=== PATIENT | male | born 1955 | race Caucasian/White ===

== ENCOUNTER 2017-03-24 16:48 | Inpatient (IN) ==
[2017-03-24] MEDS ORDERED: HYDROcodone/CHLORPHENIRAMINE ER 5 ML UDCUP PO ONE ×2 (17:08→17:15)
[2017-03-24] MEDS ORDERED: ALBUTEROL/IPRATROPIUM 3 ML NEB RESP TX STA (17:11)
[2017-03-24 17:56] LABS: Alanine Aminotransferase 17 U/L (16-61); Albumin 2.6 G/DL (3.4-5.0); Alkaline Phosphatase 113 U/L (45-117); Aspartate Amino Transferase 15 U/L (0-37); Bilirubin,Total < 0.39 MG/DL (0.2-1.0); Blood Urea Nitrogen 30 MG/DL (7-18); Calcium 8.8 MG/DL (8.5-10.1); Glucose 226 MG/DL (74-106); Osmolality,Calculated 291.4 MOS/KG (273-304); Potassium 4.1 MMOL/L (3.5-5.1); Sodium 140 MMOL/L (136-145); Total Protein 6.6 G/DL (6.4-8.3); Troponin I Only 0.023 NG/ML (0.00-0.045)
[2017-03-24 18:08] LABS: Basophils % 0.5 % (0.0-0.8); Eosinophils # 0.2 10*3/uL (0.0-0.87); Eosinophils % 2.6 % (0.00-10.9); Hemoglobin 13.1 GM/DL (14.0-18.0); Immature Granulocytes % 0.6 %; Immature Granulocytes Absolute 0.05 #; Lymphocytes # 1.1 10*3/uL (1.4-4.0); Lymphocytes % 12.6 % (21.2-54.2); Mean Corpuscular HGB Conc 33.6 GM/DL (32-36); Mean Corpuscular Hemoglobin 30 PG (27-34); Mean Corpuscular Volume 89.9 FL (87-102); Mean Platelet Volume 10.1 FL (9.6-12.0); Monocytes # 0.6 10*3/uL (0.11-0.8); Monocytes % 6.5 % (1.7-12.7); Neutrophils # 6.5 10*3/uL (1.4-7.4); Neutrophils % 77.2 % (38.7-73.9); Platelet Count 169 T/CUMM (130-400); Red Blood Count 4.34 MC/CUMM (3.8-5.5); Red Cell Distribution Width 13.1 % (9.3-17.3); White Blood Count 8.4 T/CUMM (4-12)
[2017-03-24 18:19] LABS: INR 1.1; PT Patient Result 11.5 SECS; Partial Thromboplastin Time 28.8 SECS (0-40)
[2017-03-24] MEDS ORDERED: INFLUENZA VIRUS VACCINE 0.5 ML SYRINGE IM ONE (20:28)
[2017-03-24] MEDS ORDERED: PNEUMOCOCCAL VACCINE (23 VALENT) 0.5 ML VIAL IM ONE (20:28)
[2017-03-24] MEDS ORDERED: NICOTINE 21 MG/24 HR PATCH TRANSDERM PRN (20:29)
[2017-03-24] MEDS ORDERED: DEXTROSE 50% 25 GM/50 ML VIAL IV PRN (20:29)
[2017-03-24] MEDS ORDERED: ONDANSETRON 4 MG/2 ML VIAL IV PRN (20:29)
[2017-03-24] MEDS ORDERED: ACETAMINOPHEN 325 MG TABLET PO PRN (20:29)
[2017-03-24] MEDS ORDERED: GLUCAGON 1 MG VIAL IM PRN (20:29)
[2017-03-24] MEDS: INSULIN LISPRO 100 UNIT/ML SUBCUT SCH (20:53)
[2017-03-24] MEDS: methylPREDNISolone SOD SUC 40 MG/1 ML VIAL IV SCH (20:54)
[2017-03-24] MEDS: METOPROLOL TARTRATE 50 MG TABLET PO SCH (20:59)
[2017-03-24] MEDS: ALBUTEROL/IPRATROPIUM 3 ML NEB RESP TX SCH (22:41)
[2017-03-25] MEDS: ALBUTEROL/IPRATROPIUM 3 ML NEB RESP TX SCH ×4 (03:30→19:49)
[2017-03-25] MEDS: methylPREDNISolone SOD SUC 40 MG/1 ML VIAL IV SCH ×4 (04:28→21:40)
[2017-03-25 05:28] LABS: Basophils % 0.1 % (0.0-0.8); Eosinophils % 0.3 % (0.00-10.9); Hematocrit 39.6 VOL% (42.0-52.0); Hemoglobin 12.8 GM/DL (14.0-18.0); Immature Granulocytes % 0.6 %; Immature Granulocytes Absolute 0.05 #; Lymphocytes # 0.4 10*3/uL (1.4-4.0); Lymphocytes % 5.7 % (21.2-54.2); Mean Corpuscular HGB Conc 32.3 GM/DL (32-36); Mean Corpuscular Hemoglobin 30 PG (27-34); Mean Corpuscular Volume 91.2 FL (87-102); Mean Platelet Volume 10.4 FL (9.6-12.0); Monocytes # 0.1 10*3/uL (0.11-0.8); Monocytes % 0.8 % (1.7-12.7); Neutrophils # 7.1 10*3/uL (1.4-7.4); Neutrophils % 92.5 % (38.7-73.9); Platelet Count 169 T/CUMM (130-400); Red Blood Count 4.34 MC/CUMM (3.8-5.5); White Blood Count 7.7 T/CUMM (4-12)
[2017-03-25 05:53] LABS: Free T4 (Free Thyroxine) 1.02 NG/DL (0.76-1.46)
[2017-03-25 05:59] LABS: Calcium 8.5 MG/DL (8.5-10.1); Osmolality,Calculated 297.8 MOS/KG (273-304); Risk Ratio 4.6; Thyroid Stimulating Hormone 1.38 uIU/ml (0.358-3.74); VLDL CHOLESTEROL 14.4 MG/DL
[2017-03-25 06:06] LABS: Eosinophils 1 % (0-10); Lymphocytes 3 % (20-55); Myelocytes 2 %; Platelet Estimate Adequate; Segmented Neutrophils 94 % (50-85); Total Cells Counted 100
[2017-03-25] MEDS: INSULIN LISPRO 100 UNIT/ML SUBCUT SCH ×4 (08:54→21:40)
[2017-03-25] MEDS: ASPIRIN EC 81 MG TABLET PO SCH (08:55)
[2017-03-25] MEDS: METOPROLOL TARTRATE 50 MG TABLET PO SCH (08:55)
[2017-03-25] MEDS: CLOPIDOGREL 75 MG TABLET PO SCH (08:55)
[2017-03-25] MEDS: PANTOPRAZOLE 40 MG TABLET PO SCH (08:55)
[2017-03-25 11:15] LABS: Apearance,Urine Slightly Hazy (Clear); Bacteria,Urine Many /HPF (Few); Bilirubin,Urine Negative (Negative); Blood, Urine Moderate mg/dL (Negative); Glucose,Urine (UA) >=500 mg/dL (Negative); Ketones,Urine Negative (Negative); Nitrite,Urine Negative (Negative); Protein,Urine >=500 MG/DL; RBC,Urine 46 /HPF (0-4); Squamous Epithelial Cell,Urine Occasional /HPF (0-10); Urine Color Yellow (Yellow); Urine Specific Gravity 1.012 (1.001-1.035); Urine Urobilinogen < 2.0 EU/DL (0.2-1.0); WBC,Urine 3 /HPF (0-6)
[2017-03-25 12:59] LABS: Barbiturates Screen,Urine Negative (Negative); Benzodiazepines Screen,Urine Negative (Negative); Cannabinoid Screen,Urine Negative (Negative); Opiate Screen,Urine Positive (Negative); Phencyclidine Screen,Urine Negative (Negative)
[2017-03-25] MEDS ORDERED: LISINOPRIL 5 MG TABLET PO SCH (15:00)
[2017-03-25] MEDS: ENOXAPARIN 40 MG/0.4 ML SYRINGE SUBCUT SCH (18:30)
[2017-03-25] MEDS: FUROSEMIDE 40 MG/4 ML VIAL IV SCH (18:30)
[2017-03-25] MEDS: CARVEDILOL 6.25 MG TABLET PO SCH (21:39)
[2017-03-25] MEDS: LISINOPRIL 5 MG TABLET PO SCH (21:40)
[2017-03-25] MEDS: ATORVASTATIN 10 MG TABLET PO SCH (21:40)
[2017-03-26] MEDS: ALBUTEROL/IPRATROPIUM 3 ML NEB RESP TX SCH ×4 (00:46→19:17)
[2017-03-26] MEDS: methylPREDNISolone SOD SUC 40 MG/1 ML VIAL IV SCH ×4 (02:59→20:49)
[2017-03-26 08:02] LABS: Basophils % 0.1 % (0.0-0.8); Hematocrit 37.5 VOL% (42.0-52.0); Hemoglobin 12.6 GM/DL (14.0-18.0); Immature Granulocytes % 0.9 %; Immature Granulocytes Absolute 0.12 #; Lymphocytes # 0.5 10*3/uL (1.4-4.0); Lymphocytes % 3.9 % (21.2-54.2); Mean Corpuscular HGB Conc 33.6 GM/DL (32-36); Mean Corpuscular Hemoglobin 30 PG (27-34); Mean Corpuscular Volume 89.9 FL (87-102); Monocytes # 0.2 10*3/uL (0.11-0.8); Monocytes % 1.7 % (1.7-12.7); Neutrophils # 12.2 10*3/uL (1.4-7.4); Neutrophils % 93.4 % (38.7-73.9); Platelet Count 177 T/CUMM (130-400); Red Blood Count 4.17 MC/CUMM (3.8-5.5); Red Cell Distribution Width 12.8 % (9.3-17.3); White Blood Count 13.1 T/CUMM (4-12)
[2017-03-26 08:32] LABS: Band Neutrophils 1 % (0-10); Calcium 8.3 MG/DL (8.5-10.1); Lymphocytes 5 % (20-55); Potassium 4.3 MMOL/L (3.5-5.1); Segmented Neutrophils 92 % (50-85); Total Cells Counted 100
[2017-03-26 08:33] LABS: Hypochromasia 1+; Platelet Estimate Adequate
[2017-03-26] MEDS: CLOPIDOGREL 75 MG TABLET PO SCH (08:50)
[2017-03-26] MEDS: ASPIRIN EC 81 MG TABLET PO SCH (08:50)
[2017-03-26] MEDS: CARVEDILOL 6.25 MG TABLET PO SCH ×2 (08:50→20:48)
[2017-03-26] MEDS: FUROSEMIDE 40 MG/4 ML VIAL IV SCH ×2 (08:50→17:04)
[2017-03-26] MEDS: PANTOPRAZOLE 40 MG TABLET PO SCH (08:50)
[2017-03-26] MEDS: LISINOPRIL 5 MG TABLET PO SCH ×2 (08:50→20:48)
[2017-03-26] MEDS: INSULIN LISPRO 100 UNIT/ML SUBCUT SCH ×4 (08:50→20:48)
[2017-03-26] MEDS: ENOXAPARIN 40 MG/0.4 ML SYRINGE SUBCUT SCH (17:05)
[2017-03-26] MEDS: glipiZIDE 10 MG TABLET PO SCH (17:05)
[2017-03-26] MEDS: ATORVASTATIN 10 MG TABLET PO SCH (20:47)
[2017-03-26] MEDS: INSULIN GLARGINE 100 UNIT/ML SUBCUT SCH (20:48)
[2017-03-27] MEDS: ALBUTEROL/IPRATROPIUM 3 ML NEB RESP TX SCH ×4 (00:54→20:07)
[2017-03-27] MEDS: methylPREDNISolone SOD SUC 40 MG/1 ML VIAL IV SCH ×3 (02:17→16:29)
[2017-03-27 06:03] LABS: Calcium 8.9 MG/DL (8.5-10.1); Potassium 4.5 MMOL/L (3.5-5.1)
[2017-03-27] MEDS: FUROSEMIDE 40 MG/4 ML VIAL IV SCH ×2 (08:45→17:14)
[2017-03-27] MEDS: INSULIN GLARGINE 100 UNIT/ML SUBCUT SCH ×2 (08:45→22:22)
[2017-03-27] MEDS: CLOPIDOGREL 75 MG TABLET PO SCH (08:45)
[2017-03-27] MEDS: PANTOPRAZOLE 40 MG TABLET PO SCH (08:45)
[2017-03-27] MEDS: ASPIRIN EC 81 MG TABLET PO SCH (08:45)
[2017-03-27] MEDS: glipiZIDE 10 MG TABLET PO SCH ×2 (08:45→16:51)
[2017-03-27] MEDS: LISINOPRIL 5 MG TABLET PO SCH ×2 (08:45→22:21)
[2017-03-27] MEDS: CARVEDILOL 6.25 MG TABLET PO SCH ×2 (08:45→22:21)
[2017-03-27] MEDS: INSULIN LISPRO 100 UNIT/ML SUBCUT SCH ×4 (08:46→22:17)
[2017-03-27] MEDS: ENOXAPARIN 40 MG/0.4 ML SYRINGE SUBCUT SCH (16:51)
[2017-03-27] MEDS: FUROSEMIDE 40 MG TABLET PO SCH (17:44)
[2017-03-27] MEDS: predniSONE 20 MG TABLET PO SCH (22:20)
[2017-03-27] MEDS: ATORVASTATIN 10 MG TABLET PO SCH (22:21)
[2017-03-28] MEDS: ALBUTEROL/IPRATROPIUM 3 ML NEB RESP TX SCH ×4 (00:13→19:37)
[2017-03-28] MEDS: ASPIRIN EC 81 MG TABLET PO SCH (08:48)
[2017-03-28] MEDS: INSULIN GLARGINE 100 UNIT/ML SUBCUT SCH (08:48)
[2017-03-28] MEDS: predniSONE 20 MG TABLET PO SCH (08:48)
[2017-03-28] MEDS: CARVEDILOL 6.25 MG TABLET PO SCH (08:48)
[2017-03-28] MEDS: CLOPIDOGREL 75 MG TABLET PO SCH (08:48)
[2017-03-28] MEDS: FUROSEMIDE 40 MG TABLET PO SCH ×2 (08:48→16:09)
[2017-03-28] MEDS: PANTOPRAZOLE 40 MG TABLET PO SCH (08:48)
[2017-03-28] MEDS: LISINOPRIL 5 MG TABLET PO SCH (08:48)
[2017-03-28] MEDS: glipiZIDE 10 MG TABLET PO SCH ×2 (08:49→16:09)
[2017-03-28] MEDS: INSULIN LISPRO 100 UNIT/ML SUBCUT SCH ×3 (08:49→16:10)
[2017-03-28] MEDS ORDERED: SPIRONOLACTONE 25 MG TABLET PO SCH (15:00)
[2017-03-28] MEDS: ENOXAPARIN 40 MG/0.4 ML SYRINGE SUBCUT SCH (17:00)
[2017-03-28] MEDS ORDERED: CARVEDILOL 12.5 MG TABLET PO SCH (21:00)
[2017-03-28 22:09] VITALS: BP 155/77
== END 2017-03-28 20:51 | disposition home or self-care (01) | DRG 194 ==
LOC: EDBD → EDUNIT# → N.ED 16:48 → SUATTDRO 18:19 → N.EDINP 18:19 → N.5E 19:04
PROVIDERS: ADMIT Internal Medicine; ATTEND Hospitalist

== ENCOUNTER 2017-04-01 21:00 | Inpatient (IN) ==
[2017-04-01 22:47] LABS: Basophils % 0.1 % (0.0-0.8); Eosinophils % 0.2 % (0.00-10.9); Hematocrit 42.6 VOL% (42.0-52.0); Hemoglobin 14.4 GM/DL (14.0-18.0); Immature Granulocytes % 0.9 %; Immature Granulocytes Absolute 0.17 #; Lymphocytes # 0.5 10*3/uL (1.4-4.0); Lymphocytes % 2.6 % (21.2-54.2); Mean Corpuscular HGB Conc 33.8 GM/DL (32-36); Mean Corpuscular Hemoglobin 30 PG (27-34); Mean Corpuscular Volume 89.7 FL (87-102); Mean Platelet Volume 10.5 FL (9.6-12.0); Monocytes # 0.6 10*3/uL (0.11-0.8); Neutrophils # 17.7 10*3/uL (1.4-7.4); Neutrophils % 93.2 % (38.7-73.9); Platelet Count 184 T/CUMM (130-400); Red Blood Count 4.75 MC/CUMM (3.8-5.5)
[2017-04-01 22:56] LABS: INR 1.1; PT Patient Result 11.1 SECS
[2017-04-01 23:01] LABS: Albumin 2.7 G/DL (3.4-5.0); Bilirubin,Total 0.5 MG/DL (0.2-1.0); Calcium 7.7 MG/DL (8.5-10.1); Magnesium 1.9 MG/DL (1.8-2.4); Total Protein 6.2 G/DL (6.4-8.3)
[2017-04-01 23:02] LABS: Osmolality,Calculated 307.5 MOS/KG (273-304); Potassium 4.5 MMOL/L (3.5-5.1); Troponin I Only 0.043 NG/ML (0.00-0.045)
[2017-04-01] MEDS ORDERED: SODIUM CHLORIDE 0.9% 1,000 ML IV STA (23:55)
[2017-04-01] MEDS ORDERED: INSULIN REGULAR 100 UNIT/ML IV STA (23:55)
[2017-04-02 00:14] LABS: Band Neutrophils 2 % (0-10); Lymphocytes 2 % (20-55); Platelet Estimate Normal; Segmented Neutrophils 93 % (50-85); Total Cells Counted 100
[2017-04-02] MEDS ORDERED: INSULIN REGULAR 100 UNIT/ML ONE (00:50)
[2017-04-02] MEDS ORDERED: ALBUTEROL/IPRATROPIUM 3 ML NEB RESP TX STA ×2 (01:37→01:43)
[2017-04-02 01:52] LABS: Apearance,Urine CLOUDY (Clear); Bacteria,Urine Many /HPF (Few); Bilirubin,Urine Negative (Negative); Blood, Urine Large mg/dL (Negative); Glucose,Urine (UA) >=500 mg/dL (Negative); Hyaline Casts,Urine 2 /LPF (0-3); Ketones,Urine Negative (Negative); Nitrite,Urine Negative (Negative); Protein,Urine 100 MG/DL; RBC,Urine 83 /HPF (0-4); Squamous Epithelial Cell,Urine Occasional /HPF (0-10); Urine Color Yellow (Yellow); Urine Urobilinogen < 2.0 EU/DL (0.2-1.0); WBC,Urine 133 /HPF (0-6)
[2017-04-02 02:19] LABS: Pt O2 Delivery Device Room Air
[2017-04-02 02:21] LABS: ABG Base Excess 0.6 MMOL/L (-2.5-2.5); ABG HCO3 24.9 MMOL/L (20-26); ABG Oxygen Saturation 98.3 % (95-100); ABG PCO2 51.9 MM HG (35-48); ABG PH 7.334 (7.35-7.45); ABG TCO2 23.9 MMOL/L (23-27)
[2017-04-02] MEDS ORDERED: ACETAMINOPHEN 325 MG TABLET PO PRN (05:07)
[2017-04-02] MEDS ORDERED: SODIUM CHLORIDE 0.9% 1,000 ML IV SCH (05:07)
[2017-04-02] MEDS ORDERED: FUROSEMIDE 40 MG/4 ML VIAL IV ONE (05:07)
[2017-04-02] MEDS ORDERED: ALBUTEROL/IPRATROPIUM 3 ML NEB RESP TX PRN (05:07)
[2017-04-02] MEDS ORDERED: DEXTROSE 50% 25 GM/50 ML VIAL IV PRN (05:07)
[2017-04-02] MEDS ORDERED: NICOTINE 21 MG/24 HR PATCH TRANSDERM PRN (05:07)
[2017-04-02] MEDS ORDERED: GLUCAGON 1 MG VIAL IM PRN (05:07)
[2017-04-02] MEDS ORDERED: ONDANSETRON 4 MG/2 ML VIAL IV PRN (05:07)
[2017-04-02] MEDS: INSULIN REGULAR 100 UNIT/ML SUBCUT SCH ×4 (06:25→21:52)
[2017-04-02 06:46] LABS: Risk Ratio 2.53; Troponin I Only 0.037 NG/ML (0.00-0.045); VLDL CHOLESTEROL 18.6 MG/DL
[2017-04-02] MEDS: ALBUTEROL/IPRATROPIUM 3 ML NEB RESP TX SCH ×4 (07:32→20:15)
[2017-04-02] MEDS: CARVEDILOL 12.5 MG TABLET PO SCH ×2 (08:14→21:45)
[2017-04-02] MEDS: ENOXAPARIN 40 MG/0.4 ML SYRINGE SUBCUT SCH (08:14)
[2017-04-02] MEDS: methylPREDNISolone SOD SUC 40 MG/1 ML VIAL IV SCH ×2 (08:14→21:47)
[2017-04-02] MEDS: PANTOPRAZOLE 40 MG TABLET PO SCH (08:14)
[2017-04-02] MEDS: glipiZIDE 10 MG TABLET PO SCH ×2 (08:14→16:24)
[2017-04-02] MEDS: FUROSEMIDE 40 MG/4 ML VIAL IV SCH ×2 (08:14→16:23)
[2017-04-02] MEDS: ASPIRIN EC 81 MG TABLET PO SCH (08:14)
[2017-04-02] MEDS: LOSARTAN 25 MG TABLET PO SCH (08:14)
[2017-04-02] MEDS: LEVOFLOXACIN INJ 750 MG in PREMIX 1 EACH IV SCH (09:00)
[2017-04-02] MEDS ORDERED: LISINOPRIL 5 MG TABLET PO SCH (09:00)
[2017-04-02] MEDS ORDERED: FUROSEMIDE 40 MG/4 ML VIAL IV SCH (09:00)
[2017-04-02] MEDS: ISOSORBIDE MONONITRATE 30 MG TABLET PO SCH (14:50)
[2017-04-02] MEDS ORDERED: CLOPIDOGREL 75 MG TABLET PO SCH (19:00)
[2017-04-02] MEDS ORDERED: INSULIN GLARGINE 100 UNIT/ML SUBCUT SCH (21:00)
[2017-04-02] MEDS ORDERED: ATORVASTATIN 10 MG TABLET PO SCH (21:00)
[2017-04-02] MEDS: ATORVASTATIN 10 MG TABLET PO SCH (21:45)
[2017-04-03] MEDS: ALBUTEROL/IPRATROPIUM 3 ML NEB RESP TX SCH ×6 (00:27→19:36)
[2017-04-03] MEDS: methylPREDNISolone SOD SUC 40 MG/1 ML VIAL IV SCH ×2 (07:10→18:01)
[2017-04-03] MEDS: glipiZIDE 10 MG TABLET PO SCH ×2 (07:13→18:02)
[2017-04-03] MEDS: LEVOFLOXACIN INJ 750 MG in PREMIX 1 EACH IV SCH (07:14)
[2017-04-03] MEDS: INSULIN REGULAR 100 UNIT/ML SUBCUT SCH ×4 (07:17→21:20)
[2017-04-03 09:30] LABS: Basophils % 0.1 % (0.0-0.8); Eosinophils % 0.1 % (0.00-10.9); Hematocrit 41.5 VOL% (42.0-52.0); Hemoglobin 14.1 GM/DL (14.0-18.0); Immature Granulocytes % 0.7 %; Immature Granulocytes Absolute 0.11 #; Lymphocytes # 0.5 10*3/uL (1.4-4.0); Lymphocytes % 3.5 % (21.2-54.2); Mean Corpuscular Hemoglobin 30 PG (27-34); Mean Corpuscular Volume 87.6 FL (87-102); Mean Platelet Volume 10.7 FL (9.6-12.0); Monocytes # 0.4 10*3/uL (0.11-0.8); Monocytes % 2.3 % (1.7-12.7); Neutrophils % 93.3 % (38.7-73.9); Platelet Count 175 T/CUMM (130-400); Red Blood Count 4.74 MC/CUMM (3.8-5.5); Red Cell Distribution Width 12.9 % (9.3-17.3); White Blood Count 15.1 T/CUMM (4-12)
[2017-04-03 09:59] LABS: Calcium 8.1 MG/DL (8.5-10.1); Osmolality,Calculated 302.1 MOS/KG (273-304); Potassium 4.4 MMOL/L (3.5-5.1)
[2017-04-03 10:07] LABS: Hypochromasia 1+; Lymphocytes 8 % (20-55); Platelet Estimate Adequate; Segmented Neutrophils 91 % (50-85); Total Cells Counted 100
[2017-04-03] MEDS: ENOXAPARIN 40 MG/0.4 ML SYRINGE SUBCUT SCH (10:13)
[2017-04-03] MEDS: FUROSEMIDE 40 MG/4 ML VIAL IV SCH (10:14)
[2017-04-03] MEDS: ISOSORBIDE MONONITRATE 30 MG TABLET PO SCH (10:14)
[2017-04-03] MEDS: LOSARTAN 25 MG TABLET PO SCH (10:14)
[2017-04-03] MEDS: PANTOPRAZOLE 40 MG TABLET PO SCH (10:14)
[2017-04-03] MEDS: ASPIRIN EC 81 MG TABLET PO SCH (10:14)
[2017-04-03] MEDS: CARVEDILOL 12.5 MG TABLET PO SCH ×2 (10:14→21:19)
[2017-04-03] MEDS ORDERED: INSULIN GLARGINE 100 UNIT/ML SUBCUT SCH (21:00)
[2017-04-03] MEDS: TAMSULOSIN 0.4 MG CAPSULE PO SCH (21:19)
[2017-04-03] MEDS: ATORVASTATIN 10 MG TABLET PO SCH (21:19)
[2017-04-04] MEDS: ALBUTEROL/IPRATROPIUM 3 ML NEB RESP TX SCH ×7 (00:09→23:06)
[2017-04-04] MEDS ORDERED: INSULIN REGULAR 100 UNIT/ML SUBCUT ONE ×2 (01:29→02:00)
[2017-04-04 06:01] LABS: Basophils % 0.1 % (0.0-0.8); Hematocrit 44.4 VOL% (42.0-52.0); Hemoglobin 14.8 GM/DL (14.0-18.0); Immature Granulocytes % 1.1 %; Immature Granulocytes Absolute 0.17 #; Lymphocytes # 0.5 10*3/uL (1.4-4.0); Lymphocytes % 3.2 % (21.2-54.2); Mean Corpuscular HGB Conc 33.3 GM/DL (32-36); Mean Corpuscular Hemoglobin 30 PG (27-34); Mean Platelet Volume 10.6 FL (9.6-12.0); Monocytes # 0.6 10*3/uL (0.11-0.8); Neutrophils # 14.3 10*3/uL (1.4-7.4); Neutrophils % 91.6 % (38.7-73.9); Platelet Count 175 T/CUMM (130-400); Red Blood Count 4.99 MC/CUMM (3.8-5.5); Red Cell Distribution Width 12.9 % (9.3-17.3); White Blood Count 15.6 T/CUMM (4-12)
[2017-04-04] MEDS: methylPREDNISolone SOD SUC 40 MG/1 ML VIAL IV SCH (06:10)
[2017-04-04 06:22] LABS: Calcium 8.7 MG/DL (8.5-10.1); Potassium 3.9 MMOL/L (3.5-5.1)
[2017-04-04 06:25] LABS: Lymphocytes 5 % (20-55); Platelet Estimate Normal; Segmented Neutrophils 94 % (50-85); Total Cells Counted 100
[2017-04-04 06:26] LABS: Giant Platelets Few; Hypochromasia 1+
[2017-04-04] MEDS: ENOXAPARIN 40 MG/0.4 ML SYRINGE SUBCUT SCH (09:14)
[2017-04-04] MEDS: glipiZIDE 10 MG TABLET PO SCH ×2 (09:15→16:47)
[2017-04-04] MEDS: ASPIRIN EC 81 MG TABLET PO SCH (09:15)
[2017-04-04] MEDS: CARVEDILOL 12.5 MG TABLET PO SCH ×2 (09:15→20:55)
[2017-04-04] MEDS: ISOSORBIDE MONONITRATE 30 MG TABLET PO SCH (09:15)
[2017-04-04] MEDS: INSULIN REGULAR 100 UNIT/ML SUBCUT SCH ×4 (09:15→21:03)
[2017-04-04] MEDS: PANTOPRAZOLE 40 MG TABLET PO SCH (09:16)
[2017-04-04] MEDS: LEVOFLOXACIN INJ 750 MG in PREMIX 1 EACH IV SCH (09:16)
[2017-04-04] MEDS: INSULIN GLARGINE 100 UNIT/ML SUBCUT SCH (12:20)
[2017-04-04] MEDS ORDERED: DEXTROSE 50% 25 GM/50 ML VIAL IV PRN (16:16)
[2017-04-04] MEDS ORDERED: GLUCAGON 1 MG VIAL IM PRN (16:16)
[2017-04-04] MEDS: ATORVASTATIN 10 MG TABLET PO SCH (20:55)
[2017-04-04] MEDS: TAMSULOSIN 0.4 MG CAPSULE PO SCH (20:56)
[2017-04-05] MEDS: methylPREDNISolone SOD SUC 40 MG/1 ML VIAL IV SCH ×3 (00:10→21:19)
[2017-04-05] MEDS: ALBUTEROL/IPRATROPIUM 3 ML NEB RESP TX SCH ×5 (03:31→19:58)
[2017-04-05 08:04] LABS: Basophils % 0.1 % (0.0-0.8); Eosinophils % 0.1 % (0.00-10.9); Hematocrit 42.5 VOL% (42.0-52.0); Hemoglobin 14.3 GM/DL (14.0-18.0); Immature Granulocytes % 1.3 %; Lymphocytes # 1.8 10*3/uL (1.4-4.0); Lymphocytes % 11.7 % (21.2-54.2); Mean Corpuscular HGB Conc 33.6 GM/DL (32-36); Mean Corpuscular Hemoglobin 30 PG (27-34); Mean Corpuscular Volume 88.2 FL (87-102); Monocytes # 0.9 10*3/uL (0.11-0.8); Monocytes % 5.6 % (1.7-12.7); Neutrophils # 12.7 10*3/uL (1.4-7.4); Neutrophils % 81.2 % (38.7-73.9); Platelet Count 174 T/CUMM (130-400); Red Blood Count 4.82 MC/CUMM (3.8-5.5); Red Cell Distribution Width 13.2 % (9.3-17.3); White Blood Count 15.6 T/CUMM (4-12)
[2017-04-05 08:45] LABS: Calcium 8.5 MG/DL (8.5-10.1); Osmolality,Calculated 297.5 MOS/KG (273-304); Potassium 3.8 MMOL/L (3.5-5.1)
[2017-04-05] MEDS: INSULIN REGULAR 100 UNIT/ML SUBCUT SCH ×4 (08:55→21:18)
[2017-04-05] MEDS: PANTOPRAZOLE 40 MG TABLET PO SCH (08:57)
[2017-04-05] MEDS: ASPIRIN EC 81 MG TABLET PO SCH (08:57)
[2017-04-05] MEDS: glipiZIDE 10 MG TABLET PO SCH ×2 (08:57→16:40)
[2017-04-05] MEDS: ENOXAPARIN 40 MG/0.4 ML SYRINGE SUBCUT SCH (08:58)
[2017-04-05] MEDS: ISOSORBIDE MONONITRATE 30 MG TABLET PO SCH (09:03)
[2017-04-05] MEDS: CARVEDILOL 12.5 MG TABLET PO SCH (09:03)
[2017-04-05] MEDS ORDERED: INSULIN REGULAR 100 UNIT/ML SUBCUT ONE (18:20)
[2017-04-05] MEDS: CARVEDILOL 6.25 MG TABLET PO SCH (21:19)
[2017-04-05] MEDS: ATORVASTATIN 10 MG TABLET PO SCH (21:19)
[2017-04-05] MEDS: TAMSULOSIN 0.4 MG CAPSULE PO SCH (21:19)
[2017-04-05] MEDS: INSULIN GLARGINE 100 UNIT/ML SUBCUT SCH (21:19)
[2017-04-06] MEDS: ALBUTEROL/IPRATROPIUM 3 ML NEB RESP TX SCH ×4 (00:28→11:55)
[2017-04-06 07:15] LABS: Basophils % 0.1 % (0.0-0.8); Hematocrit 44.1 VOL% (42.0-52.0); Hemoglobin 14.7 GM/DL (14.0-18.0); Immature Granulocytes % 1.1 %; Immature Granulocytes Absolute 0.16 #; Lymphocytes # 0.7 10*3/uL (1.4-4.0); Lymphocytes % 4.6 % (21.2-54.2); Mean Corpuscular HGB Conc 33.3 GM/DL (32-36); Mean Corpuscular Hemoglobin 30 PG (27-34); Mean Corpuscular Volume 88.7 FL (87-102); Mean Platelet Volume 11.2 FL (9.6-12.0); Monocytes # 0.3 10*3/uL (0.11-0.8); Monocytes % 1.8 % (1.7-12.7); Neutrophils # 13.2 10*3/uL (1.4-7.4); Neutrophils % 92.4 % (38.7-73.9); Platelet Count 157 T/CUMM (130-400); Red Blood Count 4.97 MC/CUMM (3.8-5.5); Red Cell Distribution Width 13.2 % (9.3-17.3); White Blood Count 14.3 T/CUMM (4-12)
[2017-04-06 07:44] LABS: Calcium 8.2 MG/DL (8.5-10.1); Magnesium 1.9 MG/DL (1.8-2.4); Osmolality,Calculated 308.1 MOS/KG (273-304); Potassium 4.4 MMOL/L (3.5-5.1)
[2017-04-06 08:00] LABS: Lymphocytes 1 % (20-55); Platelet Estimate Normal; Segmented Neutrophils 97 % (50-85); Total Cells Counted 100
[2017-04-06 08:02] LABS: Hypochromasia Slight; Ovalocytes Slight
[2017-04-06 08:03] LABS: Giant Platelets Few
[2017-04-06 08:35] VITALS: BP 138/76
[2017-04-06] MEDS ORDERED: LEVOFLOXACIN INJ 750 MG in PREMIX 1 EACH IV SCH (09:00)
[2017-04-06] MEDS: glipiZIDE 10 MG TABLET PO SCH (09:17)
[2017-04-06] MEDS: INSULIN REGULAR 100 UNIT/ML SUBCUT SCH ×2 (09:18→13:05)
[2017-04-06] MEDS: ASPIRIN EC 81 MG TABLET PO SCH (09:18)
[2017-04-06] MEDS: CARVEDILOL 6.25 MG TABLET PO SCH (09:18)
[2017-04-06] MEDS: ISOSORBIDE MONONITRATE 30 MG TABLET PO SCH (09:18)
[2017-04-06] MEDS: PANTOPRAZOLE 40 MG TABLET PO SCH (09:18)
[2017-04-06] MEDS: methylPREDNISolone SOD SUC 40 MG/1 ML VIAL IV SCH (09:19)
[2017-04-06] MEDS: ENOXAPARIN 40 MG/0.4 ML SYRINGE SUBCUT SCH (09:24)
[2017-04-06] MEDS ORDERED: CIPROFLOXACIN 500 MG TABLET PO SCH (21:00)
[2017-04-07] MEDS ORDERED: predniSONE 20 MG TABLET PO SCH (09:00)
== END 2017-04-06 13:23 | disposition home or self-care (01) | DRG 194 ==
LOC: EDBD → EDSEX → EDUNIT# → N.ED 21:00 → N.EDINP 04-02 02:03 → SUATTDRO 04-02 02:03 → N.2E 04-02 02:23
PROVIDERS: ADMIT Hospitalist; ATTEND Hospitalist

== ENCOUNTER 2018-09-03 18:03 | Inpatient (IN) ==
[2018-09-03] MEDS ORDERED: ALBUTEROL/IPRATROPIUM 3 ML NEB RESP TX STA (18:21)
[2018-09-03] MEDS ORDERED: FUROSEMIDE 40 MG/4 ML VIAL IV STA (18:22)
[2018-09-03] MEDS ORDERED: methylPREDNISolone SOD SUC 125 MG/2 ML VIAL IV STA (18:23)
[2018-09-03 18:48] LABS: Basophils % 0.4 % (0.0-0.8); Eosinophils # 0.1 10*3/uL (0.0-0.87); Eosinophils % 1.6 % (0.00-10.9); Hematocrit 41.1 VOL% (42.0-52.0); Immature Granulocytes % 0.6 %; Immature Granulocytes Absolute 0.04 #; Lymphocytes # 0.9 10*3/uL (1.4-4.0); Lymphocytes % 12.2 % (21.2-54.2); Mean Corpuscular HGB Conc 31.6 GM/DL (32-36); Mean Corpuscular Volume 92.4 FL (87-102); Mean Platelet Volume 10.1 FL (9.6-12.0); Monocytes % 8.3 % (1.7-12.7); Neutrophils % 76.9 % (38.7-73.9); Platelet Count 153 T/CUMM (130-400); Red Blood Count 4.45 MC/CUMM (3.8-5.5)
[2018-09-03 19:11] LABS: Albumin 3.1 G/DL (3.4-5.0); Bilirubin,Total 0.8 MG/DL (0.2-1.0); Calcium 8.3 MG/DL (8.5-10.1); Osmolality,Calculated 291.4 MOS/KG (273-304); Total Protein 6.5 G/DL (6.4-8.3)
[2018-09-03] MEDS ORDERED: HEPARIN DRIP 25,000 UNITS/500 ML PREMIX IV SCH (22:00)
[2018-09-03] MEDS: ATORVASTATIN 10 MG TABLET PO SCH (22:20)
[2018-09-03] MEDS: SACUBITRIL/VALSARTAN 49-51 MG TABLET PO SCH (22:20)
[2018-09-03] MEDS: CARVEDILOL 6.25 MG TABLET PO SCH (22:20)
[2018-09-03] MEDS: LEVOFLOXACIN INJ 750 MG in PREMIX 1 EACH IV SCH (22:21)
[2018-09-03] MEDS: ALBUTEROL/IPRATROPIUM 3 ML NEB RESP TX SCH (23:00)
[2018-09-03 23:06] LABS: Apearance,Urine CLOUDY (Clear); Bacteria,Urine Moderate /HPF (Few); Bilirubin,Urine Negative (Negative); Blood, Urine Small mg/dL (Negative); Glucose,Urine (UA) Negative (Negative); Ketones,Urine Negative (Negative); Mucus,Urine Occasional /LPF (Occasional); Nitrite,Urine Negative (Negative); Protein,Urine 100 MG/DL; RBC,Urine 5 /HPF (0-4); Squamous Epithelial Cell,Urine Occasional /HPF (0-10); Urine Color Yellow (Yellow); Urine Specific Gravity 1.011 (1.001-1.035); Urine Urobilinogen < 2.0 EU/DL (0.2-1.0); WBC,Urine 135 /HPF (0-6)
[2018-09-03] MEDS ORDERED: PNEUMOCOCCAL VACCINE (13 VALENT) 0.5 ML SYRINGE IM ONE (23:15)
[2018-09-04] MEDS: ALBUTEROL/IPRATROPIUM 3 ML NEB RESP TX SCH ×6 (03:00→22:30)
[2018-09-04 03:06] LABS: Basophils % 0.2 % (0.0-0.8); Eosinophils % 0.2 % (0.00-10.9); Hematocrit 40.2 VOL% (42.0-52.0); Hemoglobin 12.6 GM/DL (14.0-18.0); Immature Granulocytes % 0.4 %; Immature Granulocytes Absolute 0.02 #; Lymphocytes # 0.2 10*3/uL (1.4-4.0); Lymphocytes % 4.7 % (21.2-54.2); Mean Corpuscular HGB Conc 31.3 GM/DL (32-36); Mean Corpuscular Volume 93.1 FL (87-102); Mean Platelet Volume 10.1 FL (9.6-12.0); Neutrophils % 93.5 % (38.7-73.9); Platelet Count 144 T/CUMM (130-400); Red Blood Count 4.32 MC/CUMM (3.8-5.5); Red Cell Distribution Width 13.9 % (9.3-17.3); White Blood Count 4.9 T/CUMM (4-12)
[2018-09-04 03:28] LABS: Lymphocytes 7 % (20-55); Segmented Neutrophils 92 % (50-85)
[2018-09-04 03:30] LABS: Platelet Estimate Normal; Reactive Lymphocytes Few
[2018-09-04 03:31] LABS: Total Cells Counted 100
[2018-09-04 03:33] LABS: Calcium 7.9 MG/DL (8.5-10.1); Osmolality,Calculated 304.1 MOS/KG (273-304)
[2018-09-04] MEDS: methylPREDNISolone SOD SUC 40 MG/1 ML VIAL IV SCH ×3 (03:47→18:32)
[2018-09-04] MEDS: INSULIN REGULAR 100 UNIT/ML SUBCUT SCH ×5 (04:44→20:22)
[2018-09-04] MEDS: CARVEDILOL 6.25 MG TABLET PO SCH ×2 (08:48→16:25)
[2018-09-04] MEDS: PANTOPRAZOLE 40 MG TABLET PO SCH (08:48)
[2018-09-04] MEDS: SACUBITRIL/VALSARTAN 49-51 MG TABLET PO SCH ×2 (08:48→20:23)
[2018-09-04] MEDS: ASPIRIN EC 81 MG TABLET PO SCH (08:48)
[2018-09-04] MEDS: ENOXAPARIN 30 MG/0.3 ML SYRINGE SUBCUT SCH (16:25)
[2018-09-04] MEDS: LEVOFLOXACIN INJ 750 MG in PREMIX 1 EACH IV SCH (20:22)
[2018-09-04] MEDS: CLOPIDOGREL 75 MG TABLET PO SCH (20:23)
[2018-09-04] MEDS: ATORVASTATIN 10 MG TABLET PO SCH (20:23)
[2018-09-04] MEDS ORDERED: SPIRONOLACTONE 25 MG TABLET PO SCH (21:00)
[2018-09-05] MEDS: ALBUTEROL/IPRATROPIUM 3 ML NEB RESP TX SCH ×6 (03:48→23:35)
[2018-09-05] MEDS: methylPREDNISolone SOD SUC 40 MG/1 ML VIAL IV SCH ×2 (03:53→13:02)
[2018-09-05 05:41] LABS: Calcium 7.8 MG/DL (8.5-10.1); Osmolality,Calculated 302.1 MOS/KG (273-304)
[2018-09-05 05:42] LABS: Basophils % 0.1 % (0.0-0.8); Hematocrit 38.1 VOL% (42.0-52.0); Hemoglobin 12.1 GM/DL (14.0-18.0); Immature Granulocytes % 0.5 %; Immature Granulocytes Absolute 0.06 #; Lymphocytes # 0.4 10*3/uL (1.4-4.0); Lymphocytes % 3.8 % (21.2-54.2); Mean Corpuscular HGB Conc 31.8 GM/DL (32-36); Mean Corpuscular Volume 90.7 FL (87-102); Mean Platelet Volume 10.5 FL (9.6-12.0); Monocytes % 2.7 % (1.7-12.7); Neutrophils % 92.9 % (38.7-73.9); Platelet Count 170 T/CUMM (130-400); Red Cell Distribution Width 13.8 % (9.3-17.3); White Blood Count 11.4 T/CUMM (4-12)
[2018-09-05 06:56] LABS: Band Neutrophils 2 % (0-10); Lymphocytes 5 % (20-55); Segmented Neutrophils 89 % (50-85); Total Cells Counted 100
[2018-09-05 06:57] LABS: Hypochromasia 1+; Ovalocytes 1+; Platelet Estimate Normal
[2018-09-05] MEDS: INSULIN REGULAR 100 UNIT/ML SUBCUT SCH ×4 (08:34→20:28)
[2018-09-05] MEDS: SACUBITRIL/VALSARTAN 49-51 MG TABLET PO SCH (08:36)
[2018-09-05] MEDS: ASPIRIN EC 81 MG TABLET PO SCH (08:36)
[2018-09-05] MEDS: PANTOPRAZOLE 40 MG TABLET PO SCH (08:36)
[2018-09-05] MEDS: CARVEDILOL 6.25 MG TABLET PO SCH ×2 (08:36→16:44)
[2018-09-05] MEDS ORDERED: LEVOFLOXACIN INJ 750 MG in PREMIX 1 EACH IV SCH (10:00)
[2018-09-05] MEDS ORDERED: INSULIN REGULAR 100 UNIT/ML IV ONE ×2 (10:58→15:04)
[2018-09-05] MEDS ORDERED: INSULIN GLARGINE 100 UNIT/ML SUBCUT SCH (11:00)
[2018-09-05] MEDS: MONTELUKAST 10 MG TABLET PO SCH ×2 (12:22→21:10)
[2018-09-05] MEDS: INSULIN LISPRO 100 UNIT/ML SUBCUT SCH ×2 (12:23→16:40)
[2018-09-05] MEDS: SODIUM CHLORIDE 0.65% NASAL SPRAY 45 ML BOTTLE BOTH NARES SCH ×3 (12:24→21:12)
[2018-09-05] MEDS: FLUTICASONE 50 MCG NASAL SPRAY 16 GM BOTTLE BOTH NARES SCH (12:24)
[2018-09-05] MEDS ORDERED: OXYMETAZOLINE 0.05% NASAL SPRAY 15 ML BOTTLE BOTH NARES PRN (12:27)
[2018-09-05] MEDS ORDERED: INSULIN LISPRO 100 UNIT/ML SUBCUT ONE (13:40)
[2018-09-05 14:34] LABS: Albumin 2.8 G/DL (3.4-5.0); Bilirubin,Total 0.4 MG/DL (0.2-1.0); Calcium 7.8 MG/DL (8.5-10.1); Osmolality,Calculated 303.5 MOS/KG (273-304); Total Protein 6.6 G/DL (6.4-8.3)
[2018-09-05] MEDS ORDERED: FUROSEMIDE 40 MG/4 ML VIAL IV SCH (16:00)
[2018-09-05] MEDS: ENOXAPARIN 30 MG/0.3 ML SYRINGE SUBCUT SCH (16:40)
[2018-09-05] MEDS: CLOPIDOGREL 75 MG TABLET PO SCH (21:07)
[2018-09-05] MEDS: ATORVASTATIN 10 MG TABLET PO SCH (21:07)
[2018-09-06] MEDS: ALBUTEROL/IPRATROPIUM 3 ML NEB RESP TX SCH ×6 (03:17→19:00)
[2018-09-06 06:07] LABS: Basophils % 0.2 % (0.0-0.8); Hematocrit 38.3 VOL% (42.0-52.0); Hemoglobin 12.2 GM/DL (14.0-18.0); Immature Granulocytes % 1.2 %; Immature Granulocytes Absolute 0.14 #; Lymphocytes # 0.7 10*3/uL (1.4-4.0); Lymphocytes % 6.1 % (21.2-54.2); Mean Corpuscular HGB Conc 31.9 GM/DL (32-36); Mean Corpuscular Volume 90.8 FL (87-102); Monocytes % 5.3 % (1.7-12.7); Neutrophils % 87.2 % (38.7-73.9); Platelet Count 181 T/CUMM (130-400); Red Blood Count 4.22 MC/CUMM (3.8-5.5); White Blood Count 12.1 T/CUMM (4-12)
[2018-09-06 06:20] LABS: Calcium 7.7 MG/DL (8.5-10.1); Osmolality,Calculated 294.1 MOS/KG (273-304)
[2018-09-06] MEDS: INSULIN REGULAR 100 UNIT/ML SUBCUT SCH ×4 (08:29→21:39)
[2018-09-06] MEDS: INSULIN LISPRO 100 UNIT/ML SUBCUT SCH ×3 (08:30→17:21)
[2018-09-06] MEDS: MONTELUKAST 10 MG TABLET PO SCH ×2 (08:31→20:58)
[2018-09-06] MEDS: ASPIRIN EC 81 MG TABLET PO SCH (08:31)
[2018-09-06] MEDS: FLUTICASONE 50 MCG NASAL SPRAY 16 GM BOTTLE BOTH NARES SCH (08:32)
[2018-09-06] MEDS: CARVEDILOL 6.25 MG TABLET PO SCH ×2 (08:32→16:30)
[2018-09-06] MEDS: PANTOPRAZOLE 40 MG TABLET PO SCH (08:34)
[2018-09-06] MEDS: SODIUM CHLORIDE 0.65% NASAL SPRAY 45 ML BOTTLE BOTH NARES SCH ×3 (09:27→20:54)
[2018-09-06] MEDS: INSULIN GLARGINE 100 UNIT/ML SUBCUT SCH (09:27)
[2018-09-06] MEDS: cefTRIAXone 1,000 MG in SYRINGE 1 EACH IV SCH (14:16)
[2018-09-06] MEDS: ENOXAPARIN 30 MG/0.3 ML SYRINGE SUBCUT SCH (16:31)
[2018-09-06] MEDS: CLOPIDOGREL 75 MG TABLET PO SCH (20:54)
[2018-09-06] MEDS: ATORVASTATIN 10 MG TABLET PO SCH (20:54)
[2018-09-07] MEDS: ALBUTEROL/IPRATROPIUM 3 ML NEB RESP TX SCH ×6 (02:45→23:17)
[2018-09-07 06:04] LABS: Basophils % 0.3 % (0.0-0.8); Eosinophils % 0.1 % (0.00-10.9); Hematocrit 40.9 VOL% (42.0-52.0); Hemoglobin 12.8 GM/DL (14.0-18.0); Immature Granulocytes % 2.2 %; Immature Granulocytes Absolute 0.17 #; Lymphocytes % 12.9 % (21.2-54.2); Mean Corpuscular HGB Conc 31.3 GM/DL (32-36); Mean Corpuscular Volume 91.5 FL (87-102); Monocytes % 7.3 % (1.7-12.7); Neutrophils % 77.2 % (38.7-73.9); Platelet Count 179 T/CUMM (130-400); Red Blood Count 4.47 MC/CUMM (3.8-5.5); Red Cell Distribution Width 14.3 % (9.3-17.3); White Blood Count 7.7 T/CUMM (4-12)
[2018-09-07 06:15] LABS: Osmolality,Calculated 306.5 MOS/KG (273-304)
[2018-09-07] MEDS: INSULIN REGULAR 100 UNIT/ML SUBCUT SCH ×4 (08:01→20:55)
[2018-09-07] MEDS: CARVEDILOL 6.25 MG TABLET PO SCH ×2 (08:01→16:48)
[2018-09-07] MEDS: ASPIRIN EC 81 MG TABLET PO SCH (08:01)
[2018-09-07] MEDS: MONTELUKAST 10 MG TABLET PO SCH ×2 (08:01→20:53)
[2018-09-07] MEDS: PANTOPRAZOLE 40 MG TABLET PO SCH (08:01)
[2018-09-07] MEDS: INSULIN LISPRO 100 UNIT/ML SUBCUT SCH ×3 (08:02→16:49)
[2018-09-07] MEDS: INSULIN GLARGINE 100 UNIT/ML SUBCUT SCH (08:03)
[2018-09-07] MEDS: SODIUM CHLORIDE 0.65% NASAL SPRAY 45 ML BOTTLE BOTH NARES SCH ×3 (08:05→20:55)
[2018-09-07] MEDS: FLUTICASONE 50 MCG NASAL SPRAY 16 GM BOTTLE BOTH NARES SCH (08:05)
[2018-09-07] MEDS: cefTRIAXone 1,000 MG in SYRINGE 1 EACH IV SCH (11:53)
[2018-09-07] MEDS: SODIUM BICARBONATE 650 MG TABLET PO SCH ×2 (11:54→20:53)
[2018-09-07] MEDS: ENOXAPARIN 30 MG/0.3 ML SYRINGE SUBCUT SCH (16:48)
[2018-09-07] MEDS: CLOPIDOGREL 75 MG TABLET PO SCH (20:53)
[2018-09-07] MEDS: ATORVASTATIN 10 MG TABLET PO SCH (20:53)
[2018-09-08] MEDS: ALBUTEROL/IPRATROPIUM 3 ML NEB RESP TX SCH ×5 (02:57→19:40)
[2018-09-08 04:29] LABS: Basophils % 0.3 % (0.0-0.8); Eosinophils # 0.1 10*3/uL (0.0-0.87); Eosinophils % 0.9 % (0.00-10.9); Hemoglobin 12.3 GM/DL (14.0-18.0); Immature Granulocytes % 2.9 %; Lymphocytes % 15.3 % (21.2-54.2); Mean Corpuscular HGB Conc 31.5 GM/DL (32-36); Mean Corpuscular Volume 90.9 FL (87-102); Mean Platelet Volume 10.2 FL (9.6-12.0); Monocytes % 8.7 % (1.7-12.7); Neutrophils % 71.9 % (38.7-73.9); Platelet Count 163 T/CUMM (130-400); Red Blood Count 4.29 MC/CUMM (3.8-5.5); Red Cell Distribution Width 14.3 % (9.3-17.3); White Blood Count 6.8 T/CUMM (4-12)
[2018-09-08 04:54] LABS: Calcium 7.6 MG/DL (8.5-10.1); Osmolality,Calculated 309.4 MOS/KG (273-304)
[2018-09-08] MEDS: INSULIN REGULAR 100 UNIT/ML SUBCUT SCH ×4 (08:32→21:32)
[2018-09-08] MEDS: INSULIN LISPRO 100 UNIT/ML SUBCUT SCH ×3 (08:32→16:52)
[2018-09-08] MEDS: INSULIN GLARGINE 100 UNIT/ML SUBCUT SCH (08:32)
[2018-09-08] MEDS: PANTOPRAZOLE 40 MG TABLET PO SCH (08:33)
[2018-09-08] MEDS: CARVEDILOL 6.25 MG TABLET PO SCH ×2 (08:33→16:53)
[2018-09-08] MEDS: ASPIRIN EC 81 MG TABLET PO SCH (08:33)
[2018-09-08] MEDS: MONTELUKAST 10 MG TABLET PO SCH ×2 (08:33→21:33)
[2018-09-08] MEDS: SODIUM BICARBONATE 650 MG TABLET PO SCH ×2 (08:33→21:33)
[2018-09-08] MEDS: FLUTICASONE 50 MCG NASAL SPRAY 16 GM BOTTLE BOTH NARES SCH (10:42)
[2018-09-08] MEDS: SODIUM CHLORIDE 0.65% NASAL SPRAY 45 ML BOTTLE BOTH NARES SCH ×3 (10:43→21:33)
[2018-09-08] MEDS: cefTRIAXone 1,000 MG in SYRINGE 1 EACH IV SCH (12:45)
[2018-09-08] MEDS: ENOXAPARIN 30 MG/0.3 ML SYRINGE SUBCUT SCH (16:53)
[2018-09-08] MEDS: ATORVASTATIN 10 MG TABLET PO SCH (21:33)
[2018-09-08] MEDS: CLOPIDOGREL 75 MG TABLET PO SCH (21:33)
[2018-09-09] MEDS: ALBUTEROL/IPRATROPIUM 3 ML NEB RESP TX SCH ×4 (00:50→11:35)
[2018-09-09 05:59] LABS: Calcium 7.8 MG/DL (8.5-10.1); Osmolality,Calculated 309.1 MOS/KG (273-304)
[2018-09-09] MEDS: SODIUM BICARBONATE 650 MG TABLET PO SCH (08:28)
[2018-09-09] MEDS: CARVEDILOL 6.25 MG TABLET PO SCH (08:28)
[2018-09-09] MEDS: PANTOPRAZOLE 40 MG TABLET PO SCH (08:28)
[2018-09-09] MEDS: MONTELUKAST 10 MG TABLET PO SCH (08:28)
[2018-09-09] MEDS: INSULIN REGULAR 100 UNIT/ML SUBCUT SCH ×2 (08:28→14:04)
[2018-09-09] MEDS: INSULIN GLARGINE 100 UNIT/ML SUBCUT SCH (08:28)
[2018-09-09] MEDS: ASPIRIN EC 81 MG TABLET PO SCH (08:28)
[2018-09-09] MEDS: INSULIN LISPRO 100 UNIT/ML SUBCUT SCH ×2 (08:29→14:03)
[2018-09-09] MEDS: SODIUM CHLORIDE 0.65% NASAL SPRAY 45 ML BOTTLE BOTH NARES SCH (09:56)
[2018-09-09] MEDS: FLUTICASONE 50 MCG NASAL SPRAY 16 GM BOTTLE BOTH NARES SCH (09:56)
[2018-09-09 11:32] VITALS: BP 124/72
[2018-09-09] MEDS: cefTRIAXone 1,000 MG in SYRINGE 1 EACH IV SCH (14:03)
== END 2018-09-09 16:05 | disposition home health service (06) | DRG 139 ==
LOC: EDBD → EDUNIT# → N.ED 18:03 → SUATTDRO 20:36 → N.EDINP 20:36 → N.5E 20:50
PROVIDERS: ADMIT Internal Medicine; ATTEND Internal Medicine

== ENCOUNTER 2019-03-27 16:02 | Inpatient (IN) ==
[2019-03-27] MEDS ORDERED: ALBUTEROL/IPRATROPIUM 3 ML NEB RESP TX STA (16:20)
[2019-03-27] MEDS ORDERED: ONDANSETRON 4 MG/2 ML VIAL IV STA (16:20)
[2019-03-27] MEDS ORDERED: FUROSEMIDE 100 MG/10 ML VIAL IV STA (16:20)
[2019-03-27 17:02] LABS: Basophils % 0.6 % (0.0-0.8); Eosinophils # 0.1 10*3/uL (0.0-0.87); Eosinophils % 0.9 % (0.00-10.9); Hemoglobin 12.3 GM/DL (14.0-18.0); Immature Granulocytes % 0.5 %; Immature Granulocytes Absolute 0.03 #; Lymphocytes # 0.7 10*3/uL (1.4-4.0); Lymphocytes % 10.5 % (21.2-54.2); Mean Corpuscular HGB Conc 30.8 GM/DL (32-36); Mean Corpuscular Volume 94.6 FL (87-102); Mean Platelet Volume 10.3 FL (9.6-12.0); Monocytes % 7.6 % (1.7-12.7); Neutrophils % 79.9 % (38.7-73.9); Platelet Count 120 T/CUMM (130-400); Red Blood Count 4.23 MC/CUMM (3.8-5.5); Red Cell Distribution Width 14.2 % (9.3-17.3); White Blood Count 6.6 T/CUMM (4-12)
[2019-03-27 17:12] LABS: INR 1.2; PT Patient Result 13.2 SECS (9.6-12.2); Partial Thromboplastin Time 28.2 SECS (20.8-36.0)
[2019-03-27 17:23] LABS: Albumin 3.5 G/DL (3.4-5.0); Bilirubin,Total 0.6 MG/DL (0.2-1.0); Osmolality,Calculated 291.5 MOS/KG (273-304); Total Protein 6.8 G/DL (6.4-8.3)
[2019-03-27 17:24] LABS: Troponin I < 0.015 NG/ML (0.00-0.045)
[2019-03-27 18:58] LABS: Barbiturates Screen,Urine Negative (Negative); Benzodiazepines Screen,Urine Negative (Negative); Cannabinoid Screen,Urine Negative (Negative); Opiate Screen,Urine Negative (Negative); Phencyclidine Screen,Urine Negative (Negative)
[2019-03-27 19:10] LABS: Apearance,Urine CLOUDY (Clear); Bacteria,Urine Many /HPF (Few); Bilirubin,Urine Negative (Negative); Blood, Urine Large mg/dL (Negative); Glucose,Urine (UA) Negative (Negative); Hyaline Casts,Urine 40 /LPF (0-3); Ketones,Urine Negative (Negative); Mucus,Urine Occasional /LPF (Occasional); Nitrite,Urine Negative (Negative); Protein,Urine 30 MG/DL; RBC,Urine 194 /HPF (0-4); Sperm,Urine Occasional /HPF (Negative); Squamous Epithelial Cell,Urine Occasional /HPF (0-10); Urine Color Yellow (Yellow); Urine Specific Gravity 1.005 (1.001-1.035); Urine Urobilinogen < 2.0 EU/DL (0.2-1.0); WBC,Urine 573 /HPF (0-6)
[2019-03-27] MEDS ORDERED: ONDANSETRON 4 MG/2 ML VIAL IV PRN (20:03)
[2019-03-27] MEDS ORDERED: BISACODYL 5 MG TABLET PO PRN (20:03)
[2019-03-27] MEDS ORDERED: ACETAMINOPHEN 325 MG TABLET PO PRN (20:03)
[2019-03-27] MEDS ORDERED: diphenhydrAMINE CAP 25 MG CAPSULE PO PRN (20:03)
[2019-03-27] MEDS ORDERED: GLUCAGON 1 MG VIAL IM PRN (20:03)
[2019-03-27] MEDS ORDERED: DEXTROSE 50% 25 GM/50 ML VIAL IV PRN (20:03)
[2019-03-27] MEDS ORDERED: guaiFENesin/DM ER 600-30 MG TABLET PO PRN (20:03)
[2019-03-27] MEDS ORDERED: NICOTINE 21 MG/24 HR PATCH TRANSDERM PRN (20:03)
[2019-03-27 20:52] LABS: Risk Ratio 2.13; VLDL CHOLESTEROL 13.4 MG/DL
[2019-03-27] MEDS: cefTRIAXone 1,000 MG in SYRINGE 1 EACH IV SCH (21:44)
[2019-03-27] MEDS: INSULIN REGULAR 100 UNIT/ML SUBCUT SCH (21:46)
[2019-03-27] MEDS: carvediloL 6.25 MG TABLET PO SCH (23:57)
[2019-03-27] MEDS: CLOPIDOGREL 75 MG TABLET PO SCH (23:58)
[2019-03-27] MEDS: oxyCODONE ER 10 MG TABLET PO SCH (23:58)
[2019-03-27] MEDS: ATORVASTATIN 10 MG TABLET PO SCH (23:58)
[2019-03-28 00:27] LABS: Calcium 9.2 MG/DL (8.5-10.1); Osmolality,Calculated 289.4 MOS/KG (273-304)
[2019-03-28] MEDS: ALBUTEROL/IPRATROPIUM 3 ML NEB RESP TX SCH ×4 (00:52→20:29)
[2019-03-28 04:20] LABS: Basophils % 0.5 % (0.0-0.8); Eosinophils # 0.1 10*3/uL (0.0-0.87); Eosinophils % 2.1 % (0.00-10.9); Hematocrit 38.9 VOL% (42.0-52.0); Hemoglobin 11.9 GM/DL (14.0-18.0); Immature Granulocytes % 0.5 %; Immature Granulocytes Absolute 0.03 #; Lymphocytes % 15.6 % (21.2-54.2); Mean Corpuscular HGB Conc 30.6 GM/DL (32-36); Mean Corpuscular Volume 94.4 FL (87-102); Mean Platelet Volume 10.9 FL (9.6-12.0); Neutrophils % 73.3 % (38.7-73.9); Platelet Count 133 T/CUMM (130-400); Red Blood Count 4.12 MC/CUMM (3.8-5.5); Red Cell Distribution Width 14.3 % (9.3-17.3); White Blood Count 6.3 T/CUMM (4-12)
[2019-03-28 04:34] LABS: Albumin 3.4 G/DL (3.4-5.0); Bilirubin,Total 0.8 MG/DL (0.2-1.0); Calcium 8.8 MG/DL (8.5-10.1); Total Protein 6.3 G/DL (6.4-8.3)
[2019-03-28] MEDS: INSULIN REGULAR 100 UNIT/ML SUBCUT SCH ×4 (09:36→22:26)
[2019-03-28] MEDS: FUROSEMIDE 40 MG/4 ML VIAL IV SCH ×2 (09:37→15:45)
[2019-03-28] MEDS: carvediloL 6.25 MG TABLET PO SCH ×2 (09:37→17:37)
[2019-03-28] MEDS: ASPIRIN EC 81 MG TABLET PO SCH (09:37)
[2019-03-28] MEDS: oxyCODONE ER 10 MG TABLET PO SCH ×3 (09:48→23:10)
[2019-03-28] MEDS ORDERED: SKIN HEALING OINT (AQUAPHOR) 50 GM TUBE TOP PRN (14:28)
[2019-03-28] MEDS: ATORVASTATIN 10 MG TABLET PO SCH (22:27)
[2019-03-28] MEDS: CLOPIDOGREL 75 MG TABLET PO SCH (22:27)
[2019-03-28] MEDS: cefTRIAXone 1,000 MG in SYRINGE 1 EACH IV SCH (22:28)
[2019-03-29] MEDS: ALBUTEROL/IPRATROPIUM 3 ML NEB RESP TX SCH ×4 (01:58→19:21)
[2019-03-29] MEDS: INSULIN REGULAR 100 UNIT/ML SUBCUT SCH ×4 (09:15→21:35)
[2019-03-29] MEDS: FUROSEMIDE 40 MG/4 ML VIAL IV SCH ×2 (09:18→16:29)
[2019-03-29] MEDS: oxyCODONE ER 10 MG TABLET PO SCH ×2 (09:18→21:13)
[2019-03-29] MEDS: carvediloL 6.25 MG TABLET PO SCH ×2 (09:19→16:29)
[2019-03-29] MEDS: ASPIRIN EC 81 MG TABLET PO SCH (09:19)
[2019-03-29] MEDS ORDERED: DEXTROSE 50% 25 GM/50 ML VIAL IV PRN (09:26)
[2019-03-29 12:16] LABS: Calcium 8.6 MG/DL (8.5-10.1); Osmolality,Calculated 295.4 MOS/KG (273-304)
[2019-03-29 12:20] LABS: Basophils % 0.5 % (0.0-0.8); Eosinophils # 0.1 10*3/uL (0.0-0.87); Eosinophils % 1.7 % (0.00-10.9); Hematocrit 36.6 VOL% (42.0-52.0); Hemoglobin 11.5 GM/DL (14.0-18.0); Immature Granulocytes % 0.3 %; Immature Granulocytes Absolute 0.02 #; Lymphocytes # 0.8 10*3/uL (1.4-4.0); Lymphocytes % 14.3 % (21.2-54.2); Mean Corpuscular HGB Conc 31.4 GM/DL (32-36); Mean Corpuscular Volume 93.1 FL (87-102); Mean Platelet Volume 10.7 FL (9.6-12.0); Monocytes % 8.7 % (1.7-12.7); Neutrophils % 74.5 % (38.7-73.9); Platelet Count 125 T/CUMM (130-400); Red Blood Count 3.93 MC/CUMM (3.8-5.5); Red Cell Distribution Width 14.2 % (9.3-17.3); White Blood Count 5.9 T/CUMM (4-12)
[2019-03-29] MEDS: CLOPIDOGREL 75 MG TABLET PO SCH (19:01)
[2019-03-29] MEDS: cefTRIAXone 1,000 MG in SYRINGE 1 EACH IV SCH (21:13)
[2019-03-29] MEDS: ATORVASTATIN 10 MG TABLET PO SCH (21:13)
[2019-03-30] MEDS: FUROSEMIDE 40 MG/4 ML VIAL IV SCH ×3 (00:35→17:42)
[2019-03-30] MEDS: ALBUTEROL/IPRATROPIUM 3 ML NEB RESP TX SCH ×4 (00:37→21:16)
[2019-03-30 06:55] LABS: Basophils % 0.4 % (0.0-0.8); Eosinophils # 0.1 10*3/uL (0.0-0.87); Eosinophils % 1.7 % (0.00-10.9); Hematocrit 37.6 VOL% (42.0-52.0); Hemoglobin 11.5 GM/DL (14.0-18.0); Immature Granulocytes % 0.3 %; Immature Granulocytes Absolute 0.02 #; Lymphocytes # 0.7 10*3/uL (1.4-4.0); Lymphocytes % 9.5 % (21.2-54.2); Mean Corpuscular HGB Conc 30.6 GM/DL (32-36); Mean Corpuscular Volume 92.6 FL (87-102); Mean Platelet Volume 10.6 FL (9.6-12.0); Monocytes % 8.4 % (1.7-12.7); Neutrophils % 79.7 % (38.7-73.9); Platelet Count 126 T/CUMM (130-400); Red Blood Count 4.06 MC/CUMM (3.8-5.5); White Blood Count 7.1 T/CUMM (4-12)
[2019-03-30 07:11] LABS: Calcium 8.4 MG/DL (8.5-10.1); Osmolality,Calculated 292.8 MOS/KG (273-304)
[2019-03-30] MEDS: INSULIN REGULAR 100 UNIT/ML SUBCUT SCH ×4 (08:27→21:33)
[2019-03-30] MEDS: oxyCODONE ER 10 MG TABLET PO SCH ×2 (08:32→21:33)
[2019-03-30] MEDS: carvediloL 6.25 MG TABLET PO SCH ×2 (08:32→17:42)
[2019-03-30] MEDS: ASPIRIN EC 81 MG TABLET PO SCH (08:32)
[2019-03-30] MEDS ORDERED: MAGNESIUM SULF RIDER 4 GM in PREMIX 1 EACH IV PRN (15:34)
[2019-03-30] MEDS ORDERED: POTASSIUM CHLORIDE 20 MEQ TABLET PO PRN (15:35)
[2019-03-30] MEDS ORDERED: POTASSIUM CHLORIDE RIDER 10 MEQ in PREMIX 1 EACH IV PRN (15:35)
[2019-03-30] MEDS: MAGNESIUM SULF RIDER 2 GM in PREMIX 1 EACH IV PRN (17:42)
[2019-03-30] MEDS: CLOPIDOGREL 75 MG TABLET PO SCH (18:04)
[2019-03-30] MEDS: ATORVASTATIN 10 MG TABLET PO SCH (21:34)
[2019-03-30] MEDS: cefTRIAXone 1,000 MG in SYRINGE 1 EACH IV SCH (21:34)
[2019-03-31] MEDS: FUROSEMIDE 40 MG/4 ML VIAL IV SCH ×3 (00:33→16:17)
[2019-03-31] MEDS: ALBUTEROL/IPRATROPIUM 3 ML NEB RESP TX SCH ×3 (01:31→13:40)
[2019-03-31 06:51] LABS: Basophils # 0.1 10*3/uL (0.0-0.2); Basophils % 0.9 % (0.0-0.8); Eosinophils # 0.2 10*3/uL (0.0-0.87); Eosinophils % 2.8 % (0.00-10.9); Hematocrit 36.7 VOL% (42.0-52.0); Hemoglobin 11.5 GM/DL (14.0-18.0); Immature Granulocytes % 0.4 %; Immature Granulocytes Absolute 0.02 #; Lymphocytes % 18.8 % (21.2-54.2); Mean Corpuscular HGB Conc 31.3 GM/DL (32-36); Mean Corpuscular Volume 91.8 FL (87-102); Mean Platelet Volume 10.4 FL (9.6-12.0); Monocytes % 10.4 % (1.7-12.7); Neutrophils % 66.7 % (38.7-73.9); Platelet Count 135 T/CUMM (130-400); Red Cell Distribution Width 13.9 % (9.3-17.3); White Blood Count 5.3 T/CUMM (4-12)
[2019-03-31 07:18] LABS: Calcium 8.7 MG/DL (8.5-10.1); Osmolality,Calculated 305.1 MOS/KG (273-304)
[2019-03-31] MEDS: INSULIN REGULAR 100 UNIT/ML SUBCUT SCH ×4 (09:03→21:02)
[2019-03-31] MEDS: carvediloL 6.25 MG TABLET PO SCH ×2 (12:37→16:17)
[2019-03-31] MEDS: ASPIRIN EC 81 MG TABLET PO SCH (12:37)
[2019-03-31] MEDS: oxyCODONE ER 10 MG TABLET PO SCH ×2 (12:37→21:04)
[2019-03-31] MEDS: oxyCODONE/ACETAMINOPHEN 5-325 MG TABLET PO PRN (18:04)
[2019-03-31] MEDS: CLOPIDOGREL 75 MG TABLET PO SCH (18:15)
[2019-03-31] MEDS: ATORVASTATIN 10 MG TABLET PO SCH (21:04)
[2019-03-31] MEDS: cefTRIAXone 1,000 MG in SYRINGE 1 EACH IV SCH (21:04)
[2019-04-01] MEDS: ALBUTEROL/IPRATROPIUM 3 ML NEB RESP TX SCH ×5 (01:45→19:28)
[2019-04-01 06:32] LABS: Basophils % 0.7 % (0.0-0.8); Eosinophils # 0.2 10*3/uL (0.0-0.87); Eosinophils % 2.6 % (0.00-10.9); Immature Granulocytes % 0.3 %; Immature Granulocytes Absolute 0.02 #; Lymphocytes # 1.1 10*3/uL (1.4-4.0); Lymphocytes % 18.4 % (21.2-54.2); Mean Corpuscular HGB Conc 31.6 GM/DL (32-36); Mean Corpuscular Volume 90.5 FL (87-102); Mean Platelet Volume 10.7 FL (9.6-12.0); Monocytes % 8.1 % (1.7-12.7); Neutrophils % 69.9 % (38.7-73.9); Platelet Count 143 T/CUMM (130-400); Red Cell Distribution Width 14.1 % (9.3-17.3); White Blood Count 5.8 T/CUMM (4-12)
[2019-04-01 06:57] LABS: Osmolality,Calculated 306.1 MOS/KG (273-304)
[2019-04-01] MEDS: INSULIN REGULAR 100 UNIT/ML SUBCUT SCH ×4 (09:39→21:26)
[2019-04-01] MEDS: oxyCODONE ER 10 MG TABLET PO SCH ×2 (09:39→21:06)
[2019-04-01] MEDS: ASPIRIN EC 81 MG TABLET PO SCH (09:40)
[2019-04-01] MEDS: carvediloL 6.25 MG TABLET PO SCH ×2 (09:40→17:23)
[2019-04-01] MEDS: FUROSEMIDE 40 MG/4 ML VIAL IV SCH (17:23)
[2019-04-01] MEDS: CLOPIDOGREL 75 MG TABLET PO SCH (18:03)
[2019-04-01] MEDS: cefTRIAXone 1,000 MG in SYRINGE 1 EACH IV SCH (21:05)
[2019-04-01] MEDS: ATORVASTATIN 10 MG TABLET PO SCH (21:06)
[2019-04-02] MEDS: ALBUTEROL/IPRATROPIUM 3 ML NEB RESP TX SCH ×4 (00:11→20:31)
[2019-04-02] MEDS: MORPHINE 4 MG/1 ML VIAL IV PRN (02:09)
[2019-04-02 08:27] LABS: Basophils % 0.7 % (0.0-0.8); Eosinophils # 0.2 10*3/uL (0.0-0.87); Eosinophils % 3.6 % (0.00-10.9); Hematocrit 37.1 VOL% (42.0-52.0); Hemoglobin 11.6 GM/DL (14.0-18.0); Immature Granulocytes % 0.4 %; Immature Granulocytes Absolute 0.02 #; Lymphocytes # 1.2 10*3/uL (1.4-4.0); Lymphocytes % 21.1 % (21.2-54.2); Mean Corpuscular HGB Conc 31.3 GM/DL (32-36); Mean Corpuscular Volume 91.6 FL (87-102); Mean Platelet Volume 10.6 FL (9.6-12.0); Monocytes % 9.5 % (1.7-12.7); Neutrophils % 64.7 % (38.7-73.9); Platelet Count 141 T/CUMM (130-400); Red Blood Count 4.05 MC/CUMM (3.8-5.5); Red Cell Distribution Width 13.9 % (9.3-17.3); White Blood Count 5.6 T/CUMM (4-12)
[2019-04-02 08:41] LABS: Calcium 8.3 MG/DL (8.5-10.1); Osmolality,Calculated 298.5 MOS/KG (273-304)
[2019-04-02] MEDS: oxyCODONE ER 10 MG TABLET PO SCH ×2 (08:46→21:47)
[2019-04-02] MEDS: carvediloL 6.25 MG TABLET PO SCH ×2 (08:46→17:38)
[2019-04-02] MEDS: ASPIRIN EC 81 MG TABLET PO SCH (08:46)
[2019-04-02] MEDS: FUROSEMIDE 40 MG/4 ML VIAL IV SCH ×2 (08:50→17:05)
[2019-04-02] MEDS: INSULIN REGULAR 100 UNIT/ML SUBCUT SCH ×4 (08:52→22:26)
[2019-04-02] MEDS: CLOPIDOGREL 75 MG TABLET PO SCH (18:03)
[2019-04-02] MEDS: cefTRIAXone 1,000 MG in SYRINGE 1 EACH IV SCH (21:46)
[2019-04-02] MEDS: ATORVASTATIN 10 MG TABLET PO SCH (21:47)
[2019-04-03] MEDS: MORPHINE 4 MG/1 ML VIAL IV PRN (01:01)
[2019-04-03] MEDS: ALBUTEROL/IPRATROPIUM 3 ML NEB RESP TX SCH ×4 (01:36→19:29)
[2019-04-03] MEDS: INSULIN REGULAR 100 UNIT/ML SUBCUT SCH ×4 (08:51→22:13)
[2019-04-03] MEDS: FUROSEMIDE 40 MG/4 ML VIAL IV SCH ×2 (08:51→16:54)
[2019-04-03] MEDS: carvediloL 6.25 MG TABLET PO SCH ×2 (08:52→16:54)
[2019-04-03] MEDS: ASPIRIN EC 81 MG TABLET PO SCH (08:52)
[2019-04-03] MEDS: oxyCODONE ER 10 MG TABLET PO SCH ×2 (08:52→20:18)
[2019-04-03 12:31] LABS: Basophils % 0.7 % (0.0-0.8); Eosinophils # 0.2 10*3/uL (0.0-0.87); Hematocrit 38.6 VOL% (42.0-52.0); Immature Granulocytes % 0.2 %; Immature Granulocytes Absolute 0.01 #; Lymphocytes # 0.9 10*3/uL (1.4-4.0); Mean Corpuscular HGB Conc 31.1 GM/DL (32-36); Mean Corpuscular Volume 91.7 FL (87-102); Mean Platelet Volume 10.5 FL (9.6-12.0); Monocytes % 8.1 % (1.7-12.7); Platelet Count 147 T/CUMM (130-400); Red Blood Count 4.21 MC/CUMM (3.8-5.5); Red Cell Distribution Width 14.1 % (9.3-17.3); White Blood Count 5.7 T/CUMM (4-12)
[2019-04-03] MEDS ORDERED: DEXTROSE 50% 25 GM/50 ML VIAL IV PRN (12:37)
[2019-04-03] MEDS ORDERED: GLUCAGON 1 MG VIAL IM PRN (12:37)
[2019-04-03 12:48] LABS: Calcium 8.9 MG/DL (8.5-10.1); Osmolality,Calculated 298.5 MOS/KG (273-304)
[2019-04-03] MEDS ORDERED: MAGNESIUM HYDROXIDE SUSP 30 ML UDCUP PO PRN (14:25)
[2019-04-03] MEDS: OXYMETAZOLINE 0.05% NASAL SPRAY 15 ML BOTTLE BOTH NARES SCH ×2 (16:54→22:14)
[2019-04-03] MEDS: CLOPIDOGREL 75 MG TABLET PO SCH (18:13)
[2019-04-03] MEDS: ATORVASTATIN 10 MG TABLET PO SCH (22:13)
[2019-04-03] MEDS: oxyCODONE/ACETAMINOPHEN 5-325 MG TABLET PO PRN (22:54)
[2019-04-03] MEDS: cefTRIAXone 1,000 MG in SYRINGE 1 EACH IV SCH (22:55)
[2019-04-04] MEDS: ALBUTEROL/IPRATROPIUM 3 ML NEB RESP TX SCH ×4 (00:31→20:37)
[2019-04-04 04:40] LABS: Basophils % 0.8 % (0.0-0.8); Eosinophils # 0.2 10*3/uL (0.0-0.87); Hematocrit 36.2 VOL% (42.0-52.0); Hemoglobin 11.2 GM/DL (14.0-18.0); Immature Granulocytes % 0.2 %; Immature Granulocytes Absolute 0.01 #; Lymphocytes # 1.1 10*3/uL (1.4-4.0); Lymphocytes % 21.5 % (21.2-54.2); Mean Corpuscular HGB Conc 30.9 GM/DL (32-36); Mean Corpuscular Volume 91.9 FL (87-102); Mean Platelet Volume 10.7 FL (9.6-12.0); Monocytes % 9.3 % (1.7-12.7); Neutrophils % 65.2 % (38.7-73.9); Platelet Count 131 T/CUMM (130-400); Red Blood Count 3.94 MC/CUMM (3.8-5.5); White Blood Count 5.1 T/CUMM (4-12)
[2019-04-04 05:02] LABS: Osmolality,Calculated 307.1 MOS/KG (273-304)
[2019-04-04] MEDS: INSULIN REGULAR 100 UNIT/ML SUBCUT SCH ×4 (09:13→20:39)
[2019-04-04] MEDS: oxyCODONE ER 10 MG TABLET PO SCH (09:14)
[2019-04-04] MEDS: carvediloL 6.25 MG TABLET PO SCH ×2 (09:14→17:40)
[2019-04-04] MEDS: ASPIRIN EC 81 MG TABLET PO SCH (09:14)
[2019-04-04] MEDS: OXYMETAZOLINE 0.05% NASAL SPRAY 15 ML BOTTLE BOTH NARES SCH ×2 (09:16→20:39)
[2019-04-04] MEDS ORDERED: FUROSEMIDE 80 MG TABLET PO SCH (14:30)
[2019-04-04] MEDS: ATORVASTATIN 10 MG TABLET PO SCH (20:34)
[2019-04-04] MEDS: MILRINONE 20 MG/100 ML PREMIX IV SCH (20:34)
[2019-04-05] MEDS: ALBUTEROL/IPRATROPIUM 3 ML NEB RESP TX SCH ×4 (01:16→19:48)
[2019-04-05] MEDS: MILRINONE 20 MG/100 ML PREMIX IV SCH ×4 (01:58→22:59)
[2019-04-05 06:01] LABS: Basophils % 0.5 % (0.0-0.8); Eosinophils # 0.2 10*3/uL (0.0-0.87); Hematocrit 35.7 VOL% (42.0-52.0); Hemoglobin 11.1 GM/DL (14.0-18.0); Immature Granulocytes % 0.5 %; Immature Granulocytes Absolute 0.03 #; Lymphocytes # 1.2 10*3/uL (1.4-4.0); Lymphocytes % 19.1 % (21.2-54.2); Mean Corpuscular HGB Conc 31.1 GM/DL (32-36); Mean Platelet Volume 10.6 FL (9.6-12.0); Monocytes % 8.9 % (1.7-12.7); Platelet Count 130 T/CUMM (130-400); Red Blood Count 3.88 MC/CUMM (3.8-5.5); Red Cell Distribution Width 13.8 % (9.3-17.3); White Blood Count 6.3 T/CUMM (4-12)
[2019-04-05 06:15] LABS: Osmolality,Calculated 304.1 MOS/KG (273-304)
[2019-04-05] MEDS: INSULIN REGULAR 100 UNIT/ML SUBCUT SCH ×4 (08:29→20:04)
[2019-04-05] MEDS: ASPIRIN EC 81 MG TABLET PO SCH (09:25)
[2019-04-05] MEDS: OXYMETAZOLINE 0.05% NASAL SPRAY 15 ML BOTTLE BOTH NARES SCH ×2 (09:25→20:04)
[2019-04-05] MEDS: carvediloL 6.25 MG TABLET PO SCH ×2 (09:25→16:42)
[2019-04-05] MEDS: FUROSEMIDE 40 MG/4 ML VIAL IV SCH (16:42)
[2019-04-05] MEDS: cefTRIAXone 1,000 MG in SYRINGE 1 EACH IV SCH (18:02)
[2019-04-05] MEDS: CLORAZEPATE 3.75 MG TABLET PO PRN (19:51)
[2019-04-05] MEDS: CLOPIDOGREL 75 MG TABLET PO SCH ×2 (19:51→19:55)
[2019-04-05] MEDS: ATORVASTATIN 10 MG TABLET PO SCH (20:04)
[2019-04-06] MEDS: ALBUTEROL/IPRATROPIUM 3 ML NEB RESP TX SCH ×4 (00:14→19:45)
[2019-04-06 04:27] LABS: Basophils % 0.5 % (0.0-0.8); Eosinophils # 0.1 10*3/uL (0.0-0.87); Eosinophils % 1.4 % (0.00-10.9); Hematocrit 34.9 VOL% (42.0-52.0); Immature Granulocytes % 0.5 %; Immature Granulocytes Absolute 0.03 #; Lymphocytes # 0.9 10*3/uL (1.4-4.0); Lymphocytes % 13.5 % (21.2-54.2); Mean Corpuscular HGB Conc 31.5 GM/DL (32-36); Mean Corpuscular Volume 91.1 FL (87-102); Mean Platelet Volume 10.7 FL (9.6-12.0); Monocytes % 8.8 % (1.7-12.7); Neutrophils % 75.3 % (38.7-73.9); Platelet Count 121 T/CUMM (130-400); Red Blood Count 3.83 MC/CUMM (3.8-5.5); Red Cell Distribution Width 13.9 % (9.3-17.3); White Blood Count 6.4 T/CUMM (4-12)
[2019-04-06] MEDS: MILRINONE 20 MG/100 ML PREMIX IV SCH ×4 (04:42→22:56)
[2019-04-06 04:49] LABS: Calcium 9.2 MG/DL (8.5-10.1); Osmolality,Calculated 302.7 MOS/KG (273-304)
[2019-04-06] MEDS ORDERED: FUROSEMIDE 20 MG/2 ML VIAL ONE (08:01)
[2019-04-06] MEDS: INSULIN REGULAR 100 UNIT/ML SUBCUT SCH ×4 (08:18→20:20)
[2019-04-06] MEDS: carvediloL 6.25 MG TABLET PO SCH ×2 (08:20→17:31)
[2019-04-06] MEDS: ASPIRIN EC 81 MG TABLET PO SCH (08:20)
[2019-04-06] MEDS: OXYMETAZOLINE 0.05% NASAL SPRAY 15 ML BOTTLE BOTH NARES SCH (08:21)
[2019-04-06] MEDS: FUROSEMIDE 40 MG/4 ML VIAL IV SCH (09:44)
[2019-04-06] MEDS: BUDESONIDE 0.5 MG/2 ML NEB RESP TX SCH ×2 (12:54→19:45)
[2019-04-06] MEDS: cefTRIAXone 1,000 MG in SYRINGE 1 EACH IV SCH (17:31)
[2019-04-06] MEDS: CLOPIDOGREL 75 MG TABLET PO SCH (19:11)
[2019-04-06] MEDS: ATORVASTATIN 10 MG TABLET PO SCH (20:20)
[2019-04-06] MEDS: CLORAZEPATE 3.75 MG TABLET PO PRN (20:21)
[2019-04-07] MEDS: ALBUTEROL/IPRATROPIUM 3 ML NEB RESP TX SCH ×2 (00:47→08:21)
[2019-04-07 04:22] LABS: Basophils % 0.3 % (0.0-0.8); Eosinophils # 0.1 10*3/uL (0.0-0.87); Eosinophils % 1.2 % (0.00-10.9); Hemoglobin 10.8 GM/DL (14.0-18.0); Immature Granulocytes % 0.5 %; Immature Granulocytes Absolute 0.03 #; Lymphocytes # 0.7 10*3/uL (1.4-4.0); Lymphocytes % 10.8 % (21.2-54.2); Mean Corpuscular HGB Conc 31.8 GM/DL (32-36); Mean Corpuscular Volume 89.2 FL (87-102); Mean Platelet Volume 11.2 FL (9.6-12.0); Monocytes % 9.6 % (1.7-12.7); Neutrophils % 77.6 % (38.7-73.9); Platelet Count 127 T/CUMM (130-400); Red Blood Count 3.81 MC/CUMM (3.8-5.5); Red Cell Distribution Width 13.8 % (9.3-17.3)
[2019-04-07] MEDS: MILRINONE 20 MG/100 ML PREMIX IV SCH ×4 (04:33→21:03)
[2019-04-07 04:49] LABS: Albumin 3.4 G/DL (3.4-5.0); Bilirubin,Total 1.2 MG/DL (0.2-1.0); Osmolality,Calculated 300.1 MOS/KG (273-304); Total Protein 6.6 G/DL (6.4-8.3)
[2019-04-07] MEDS: INSULIN REGULAR 100 UNIT/ML SUBCUT SCH ×5 (08:15→21:00)
[2019-04-07] MEDS: BUDESONIDE 0.5 MG/2 ML NEB RESP TX SCH ×2 (08:21→20:37)
[2019-04-07] MEDS ORDERED: MORPHINE 4 MG/1 ML VIAL ONE (09:09)
[2019-04-07] MEDS ORDERED: NITROGLYCERIN SL 0.4 MG TABLET SL ONE (09:09)
[2019-04-07] MEDS: NITROGLYCERIN SL 0.4 MG TABLET SL PRN ×3 (09:10→13:13)
[2019-04-07] MEDS ORDERED: ASPIRIN CHEW 81 MG TABLET PO ONE (09:12)
[2019-04-07] MEDS ORDERED: MORPHINE 4 MG/1 ML VIAL IV ONE (09:12)
[2019-04-07] MEDS: HEPARIN DRIP 25,000 UNITS/500 ML PREMIX IV SCH ×2 (09:23→23:18)
[2019-04-07 09:28] LABS: Basophils % 0.3 % (0.0-0.8); Eosinophils # 0.1 10*3/uL (0.0-0.87); Eosinophils % 0.8 % (0.00-10.9); Hemoglobin 11.8 GM/DL (14.0-18.0); Immature Granulocytes % 0.6 %; Immature Granulocytes Absolute 0.04 #; Lymphocytes # 0.6 10*3/uL (1.4-4.0); Lymphocytes % 8.5 % (21.2-54.2); Mean Corpuscular HGB Conc 31.9 GM/DL (32-36); Mean Corpuscular Volume 89.6 FL (87-102); Mean Platelet Volume 10.8 FL (9.6-12.0); Monocytes % 9.4 % (1.7-12.7); Neutrophils % 80.4 % (38.7-73.9); Platelet Count 115 T/CUMM (130-400); Red Blood Count 4.13 MC/CUMM (3.8-5.5); Red Cell Distribution Width 13.8 % (9.3-17.3); White Blood Count 6.6 T/CUMM (4-12)
[2019-04-07] MEDS: FUROSEMIDE 40 MG/4 ML VIAL IV SCH (09:29)
[2019-04-07] MEDS: carvediloL 6.25 MG TABLET PO SCH ×2 (09:29→17:41)
[2019-04-07] MEDS: ASPIRIN EC 81 MG TABLET PO SCH (09:30)
[2019-04-07 09:48] LABS: Albumin 3.7 G/DL (3.4-5.0); Bilirubin,Total 0.8 MG/DL (0.2-1.0); Calcium 9.1 MG/DL (8.5-10.1); Osmolality,Calculated 304.8 MOS/KG (273-304); Total Protein 6.7 G/DL (6.4-8.3)
[2019-04-07 09:53] LABS: Platelet Estimate Adequate
[2019-04-07 09:54] LABS: Anisocytosis 1+; Macrocytosis 1+
[2019-04-07 09:55] LABS: Burr Cells Few
[2019-04-07] MEDS: IPRATROPIUM 500 MCG/2.5 ML NEB RESP TX SCH ×2 (14:15→20:37)
[2019-04-07] MEDS: cefTRIAXone 1,000 MG in SYRINGE 1 EACH IV SCH (17:30)
[2019-04-07] MEDS: CLOPIDOGREL 75 MG TABLET PO SCH (19:38)
[2019-04-07] MEDS: ATORVASTATIN 10 MG TABLET PO SCH (20:55)
[2019-04-08] MEDS: IPRATROPIUM 500 MCG/2.5 ML NEB RESP TX SCH ×4 (01:35→19:39)
[2019-04-08 04:50] LABS: Basophils % 0.3 % (0.0-0.8); Eosinophils % 0.2 % (0.00-10.9); Hematocrit 35.6 VOL% (42.0-52.0); Hemoglobin 11.2 GM/DL (14.0-18.0); Immature Granulocytes % 0.8 %; Immature Granulocytes Absolute 0.05 #; Lymphocytes # 0.6 10*3/uL (1.4-4.0); Lymphocytes % 9.2 % (21.2-54.2); Mean Corpuscular HGB Conc 31.5 GM/DL (32-36); Mean Corpuscular Volume 89.7 FL (87-102); Mean Platelet Volume 11.1 FL (9.6-12.0); Monocytes % 9.5 % (1.7-12.7); Platelet Count 122 T/CUMM (130-400); Red Blood Count 3.97 MC/CUMM (3.8-5.5); Red Cell Distribution Width 13.6 % (9.3-17.3); White Blood Count 6.4 T/CUMM (4-12)
[2019-04-08 05:25] LABS: Albumin 3.5 G/DL (3.4-5.0); Bilirubin,Total 0.8 MG/DL (0.2-1.0); Calcium 8.9 MG/DL (8.5-10.1); Osmolality,Calculated 303.5 MOS/KG (273-304); Total Protein 6.9 G/DL (6.4-8.3)
[2019-04-08] MEDS ORDERED: BISACODYL 5 MG TABLET PO ONE (07:27)
[2019-04-08] MEDS: INSULIN REGULAR 100 UNIT/ML SUBCUT SCH ×2 (09:06→12:06)
[2019-04-08] MEDS: carvediloL 6.25 MG TABLET PO SCH ×2 (09:06→17:46)
[2019-04-08] MEDS: ASPIRIN EC 81 MG TABLET PO SCH (09:06)
[2019-04-08] MEDS: BUDESONIDE 0.5 MG/2 ML NEB RESP TX SCH ×2 (09:26→19:39)
[2019-04-08] MEDS ORDERED: GLUCAGON 1 MG VIAL IM PRN (11:50)
[2019-04-08] MEDS ORDERED: DEXTROSE 10% 250 ML BAG IV PRN (11:50)
[2019-04-08] MEDS: SODIUM CHLORIDE 0.45% 1,000 ML IV SCH (12:00)
[2019-04-08] MEDS: ISOSORBIDE MONONITRATE 30 MG TABLET PO SCH (12:30)
[2019-04-08] MEDS: HEPARIN DRIP 25,000 UNITS/500 ML PREMIX IV SCH (14:30)
[2019-04-08] MEDS: cefTRIAXone 1,000 MG in SYRINGE 1 EACH IV SCH (17:46)
[2019-04-08] MEDS: CLOPIDOGREL 75 MG TABLET PO SCH (19:30)
[2019-04-08] MEDS: ATORVASTATIN 10 MG TABLET PO SCH (20:04)
[2019-04-09] MEDS: IPRATROPIUM 500 MCG/2.5 ML NEB RESP TX SCH ×4 (01:03→19:28)
[2019-04-09 02:44] LABS: Basophils % 0.3 % (0.0-0.8); Hematocrit 34.6 VOL% (42.0-52.0); Hemoglobin 11.3 GM/DL (14.0-18.0); Immature Granulocytes % 0.7 %; Immature Granulocytes Absolute 0.04 #; Lymphocytes # 0.5 10*3/uL (1.4-4.0); Lymphocytes % 8.4 % (21.2-54.2); Mean Corpuscular HGB Conc 32.7 GM/DL (32-36); Mean Corpuscular Volume 86.5 FL (87-102); Mean Platelet Volume 11.5 FL (9.6-12.0); Monocytes % 9.3 % (1.7-12.7); Neutrophils % 81.3 % (38.7-73.9); Platelet Count 124 T/CUMM (130-400); Red Cell Distribution Width 13.8 % (9.3-17.3)
[2019-04-09 02:57] LABS: Calcium 9.1 MG/DL (8.5-10.1); Osmolality,Calculated 301.8 MOS/KG (273-304)
[2019-04-09] MEDS: MAGNESIUM SULF RIDER 2 GM in PREMIX 1 EACH IV PRN (03:36)
[2019-04-09] MEDS: HEPARIN DRIP 25,000 UNITS/500 ML PREMIX IV SCH ×3 (03:57→19:57)
[2019-04-09] MEDS: BUDESONIDE 0.5 MG/2 ML NEB RESP TX SCH ×2 (07:30→19:28)
[2019-04-09] MEDS: carvediloL 6.25 MG TABLET PO SCH (09:02)
[2019-04-09] MEDS: SODIUM CHLORIDE 0.45% 1,000 ML IV SCH (09:12)
[2019-04-09] MEDS: ISOSORBIDE MONONITRATE 30 MG TABLET PO SCH (09:20)
[2019-04-09] MEDS: ASPIRIN EC 81 MG TABLET PO SCH (09:20)
[2019-04-09] MEDS: INSULIN REGULAR 100 UNIT/ML SUBCUT SCH ×2 (16:34→20:18)
[2019-04-09] MEDS: cefTRIAXone 1,000 MG in SYRINGE 1 EACH IV SCH (17:56)
[2019-04-09 18:50] VITALS: BP 102/71
[2019-04-09] MEDS: ATORVASTATIN 10 MG TABLET PO SCH (20:18)
[2019-04-10] MEDS: IPRATROPIUM 500 MCG/2.5 ML NEB RESP TX SCH ×4 (00:13→20:18)
[2019-04-10 04:57] LABS: Basophils % 0.5 % (0.0-0.8); Eosinophils % 0.5 % (0.00-10.9); Hematocrit 35.5 VOL% (42.0-52.0); Hemoglobin 11.6 GM/DL (14.0-18.0); Immature Granulocytes % 0.5 %; Immature Granulocytes Absolute 0.03 #; Lymphocytes # 0.7 10*3/uL (1.4-4.0); Lymphocytes % 13.4 % (21.2-54.2); Mean Corpuscular HGB Conc 32.7 GM/DL (32-36); Mean Corpuscular Volume 87.4 FL (87-102); Mean Platelet Volume 11.5 FL (9.6-12.0); Neutrophils % 74.1 % (38.7-73.9); Platelet Count 128 T/CUMM (130-400); Red Blood Count 4.06 MC/CUMM (3.8-5.5); Red Cell Distribution Width 13.9 % (9.3-17.3); White Blood Count 5.5 T/CUMM (4-12)
[2019-04-10 05:13] LABS: Calcium 8.7 MG/DL (8.5-10.1); Osmolality,Calculated 300.7 MOS/KG (273-304)
[2019-04-10] MEDS: BUDESONIDE 0.5 MG/2 ML NEB RESP TX SCH ×2 (08:12→20:18)
[2019-04-10] MEDS: SODIUM CHLORIDE 0.45% 1,000 ML IV SCH (08:20)
[2019-04-10] MEDS: INSULIN REGULAR 100 UNIT/ML SUBCUT SCH ×4 (08:24→20:13)
[2019-04-10] MEDS: ASPIRIN EC 81 MG TABLET PO SCH (08:25)
[2019-04-10] MEDS: HEPARIN DRIP 25,000 UNITS/500 ML PREMIX IV SCH (09:30)
[2019-04-10] MEDS: ENOXAPARIN 30 MG/0.3 ML SYRINGE SUBCUT SCH (13:42)
[2019-04-10] MEDS: cefTRIAXone 1,000 MG in SYRINGE 1 EACH IV SCH (18:27)
[2019-04-10] MEDS: ATORVASTATIN 10 MG TABLET PO SCH (20:14)
[2019-04-11] MEDS: IPRATROPIUM 500 MCG/2.5 ML NEB RESP TX SCH ×4 (00:45→21:05)
[2019-04-11 05:03] LABS: Basophils % 0.5 % (0.0-0.8); Eosinophils % 0.5 % (0.00-10.9); Hematocrit 36.9 VOL% (42.0-52.0); Immature Granulocytes % 0.5 %; Immature Granulocytes Absolute 0.03 #; Lymphocytes # 0.8 10*3/uL (1.4-4.0); Lymphocytes % 13.4 % (21.2-54.2); Mean Corpuscular HGB Conc 32.5 GM/DL (32-36); Mean Corpuscular Volume 87.4 FL (87-102); Mean Platelet Volume 11.2 FL (9.6-12.0); Neutrophils % 74.1 % (38.7-73.9); Platelet Count 141 T/CUMM (130-400); Red Blood Count 4.22 MC/CUMM (3.8-5.5); Red Cell Distribution Width 13.9 % (9.3-17.3); White Blood Count 5.9 T/CUMM (4-12)
[2019-04-11 05:35] LABS: Calcium 8.8 MG/DL (8.5-10.1); Osmolality,Calculated 308.7 MOS/KG (273-304)
[2019-04-11] MEDS: BUDESONIDE 0.5 MG/2 ML NEB RESP TX SCH ×2 (08:04→21:05)
[2019-04-11] MEDS: INSULIN REGULAR 100 UNIT/ML SUBCUT SCH ×4 (08:17→21:59)
[2019-04-11] MEDS: ASPIRIN EC 81 MG TABLET PO SCH (08:18)
[2019-04-11] MEDS: ENOXAPARIN 30 MG/0.3 ML SYRINGE SUBCUT SCH (13:13)
[2019-04-11] MEDS: cefTRIAXone 1,000 MG in SYRINGE 1 EACH IV SCH (17:15)
[2019-04-11] MEDS: ATORVASTATIN 10 MG TABLET PO SCH (21:59)
[2019-04-12] MEDS: IPRATROPIUM 500 MCG/2.5 ML NEB RESP TX SCH (01:08)
[2019-04-12 05:14] LABS: Basophils % 0.7 % (0.0-0.8); Eosinophils # 0.1 10*3/uL (0.0-0.87); Eosinophils % 1.2 % (0.00-10.9); Hematocrit 38.4 VOL% (42.0-52.0); Hemoglobin 12.5 GM/DL (14.0-18.0); Immature Granulocytes % 0.5 %; Immature Granulocytes Absolute 0.03 #; Lymphocytes % 16.6 % (21.2-54.2); Mean Corpuscular HGB Conc 32.6 GM/DL (32-36); Mean Corpuscular Volume 86.5 FL (87-102); Mean Platelet Volume 11.1 FL (9.6-12.0); Monocytes % 10.5 % (1.7-12.7); Neutrophils % 70.5 % (38.7-73.9); Platelet Count 153 T/CUMM (130-400); Red Blood Count 4.44 MC/CUMM (3.8-5.5); Red Cell Distribution Width 13.9 % (9.3-17.3); White Blood Count 5.7 T/CUMM (4-12)
[2019-04-12 05:38] LABS: Calcium 8.8 MG/DL (8.5-10.1); Osmolality,Calculated 306.5 MOS/KG (273-304)
[2019-04-12] MEDS ORDERED: SUCCINYLCHOLINE 200 MG/10 ML VIAL ONE ×2 (06:37→06:55)
[2019-04-12] MEDS ORDERED: ATROPINE 1 MG/10 ML SYRINGE ONE (06:37)
[2019-04-12] MEDS ORDERED: SODIUM BICARBONATE 50 MEQ/50 ML SYRINGE IV ONE (06:37)
[2019-04-12] MEDS ORDERED: EPINEPHrine 1 MG/ML VIAL ONE (06:37)
[2019-04-12] MEDS ORDERED: ETOMIDATE 20 MG/10 ML VIAL IV ONE (06:37)
[2019-04-12] MEDS ORDERED: AMIODARONE 150 MG/3 ML VIAL ONE (06:37)
[2019-04-12] MEDS ORDERED: ETOMIDATE 40 MG/20 ML VIAL IV ONE (06:55)
== END 2019-04-12 06:42 | disposition expired | DRG 194 ==
LOC: EDBD → EDUNIT# → N.ED 16:02 → N.EDINP 16:02 → N.2W 21:27 → N.TELEN 03-28 13:12 → SUATTDRO 03-28 14:28 → N.CC 04-04 20:08
PROVIDERS: ADMIT Family Medicine; ATTEND Internal Medicine Cardiovascular Disease